=== PATIENT | female | born 1950 | race Caucasian/White ===

== ENCOUNTER → 2022-06-20 13:32 | Outpatient (CLI) | payer MEDICARE, SELFPAY ==
--- NOTE | ~2022-06-20 | MR_ITS ---
MRI of the left knee Clinical history: Pain Technique: Coronal proton density and proton density-weighted images, sagittal proton-density and T2 fat-sat images, and axial proton-density fat-saturated images were acquired. Findings: Anterior and posterior cruciate ligaments are intact. Medial collateral ligament and the la teral collateral ligament complex are intact. Popliteus tendon is intact. Horizontal tear of the posterior horn of the lateral meniscus is present, probably extending into the body segment. Horizontal tear of the posterior horn and body of medial meniscus is present. There is mild diffuse chondral thinning in the medial compartment. Articular cartilage in the lateral and patellofemoral compartments is well preserved. Bone marrow signals are unremarkable. Extensor mechanism intact. Small joint effusion is present, with small Urbina's cyst. Impression: Horizontal tear of the posterior horn of lateral meniscus, extending to the body segment. Horizontal tear of the posterior horn and body of medial meniscus. Mild diffuse chondral thinning of the medial compartment. Small joint effusion with small Urbina's cyst. Reviewed, dictated and finalized at location . [facility] [employer] Impression: Horizontal tear of the posterior horn of lateral meniscus, extending to the bod y segment. Horizontal tear of the posterior horn and body of medial meniscus. Mild diffuse chondral thinning of the medial compartment. Small joint effusion with small Urbina's cyst.
== END ==
PROVIDERS: PCP Nurse Practitioner; Visit Provider Nurse Practitioner
DX: S83.282A Other tear of lateral meniscus, current injury, left knee, initial encounter (principal); S83.242A Other tear of medial meniscus, current injury, left knee, initial encounter; X58.XXXA Exposure to other specified factors, initial encounter; M25.462 Effusion, left knee; M71.22 Synovial cyst of popliteal space [Baker], left knee
CPT/HCPCS: 73721

== ENCOUNTER 2022-07-03 09:06 | Outpatient (CLI) | payer MEDICARE, SELFPAY ==
[2022-07-03 11:25] LABS: Urine Cotinine NEGATIVE
== END 2022-07-03 09:07 | disposition home or self-care (01) ==
PROVIDERS: PCP Nurse Practitioner; Visit Provider Orthopaedic Surgery
DX: M17.12 Unilateral primary osteoarthritis, left knee (principal); Z01.818 Encounter for other preprocedural examination
CPT/HCPCS: 80307; 87081

== ENCOUNTER 2022-07-17 00:46 | Day surgery (SDC) | payer MEDICARE, SELFPAY ==
[2022-07-03 09:38] VITALS: BP 155/84; PULSE 70; RESP 16; TEMP 36.9; O2SAT 97; BMI 26.5
--- NOTE | 2022-07-03 09:53 | PC.NURSE ---
Report to the Outpatient Waiting Room, entrance under the green pavilion located off [facility], at time __8:30AM on date __07/17/22 . Planned Procedure Time: __10:30AM . Time changes happen often and if your time is changed the preop area will call you the afternoon before. - You and your visitor will be asked to self-screen and do not enter if you have any COVID symptoms. - Only one visitor is requested with a max of two and NO children visitors are allowed at this time. - The patient visitor may be requested to leave or wait in car when not with patient due to distancing restrictions. - A mask is optional within the hospital. Patients may have clear liquids (water, carbonated beverages, clear teas, apple juice) until 3 hours prior to surgery with a maximum of 20 ounces. - No food from midnight until time of surgery Take the following medications with a SIP of water the morning of surgery: __MECLIZINE NEEDED Medications to discontinue per physician ____NONE Date to take last dose Please no make-up, nail libyan, hairspray, perfume, deodorant, or body powder the day of surgery. No jewelry (including any body piercings) or valuables the day of surgery, leave them at home. Please take a shower or bath the night before, or the morning of, surgery with an antibacterial soap. Wear comfortable, loose fitting clothing. Children are encouraged to wear pajamas. - Jewelry must be removed prior to entering the operating room. Rings and piercings that are not removed may be cut off. - The hospital will not accept responsibility for valuables. - Please leave all valuables, including medications, at home the day of surgery. If you are going home after surgery, a licensed emt driver must drive you home. - NO public transportation without another adult if you receive anesthesia. - We recommend that an adult stay with you for 24 hours following discharge. - We also recommend that you do not drive, make important decision, drink alcoholic beverages, or take any drugs that were not prescribed by your health care provider for at least 24 hours after your discharge time. Follow any additional instructions given to you from your surgeon. If you or anyone in your household have experienced Covid symptoms in the past week, please notify your surgeon or the nurse liaison at the phone number below for possible testing. Telephone instructions given to PATIENT & HUSBAND___and asked if any additional questions and then verbalized understanding. Patient advised to call surgeon office or pre surgery nurse liaison [phone] if any additional questions.
[2022-07-17] VITALS (13 sets, daily range): BP systolic 127–150; BP diastolic 59–99; PULSE 67–89; RESP 14–20; TEMP 36.1–37.2; O2SAT 91–98; BMI 26.0
--- NOTE | ~2022-07-17 | XR_ITS ---
EXAMINATION: XR knee LT 2V DATE: 07/17/2022 10:01 INDICATION: Total left knee arthroplasty. Postop. TECHNIQUE: 2 views of left knee were obtained. COMPARISON: Left knee MRI 06/20/2022 FINDINGS: There is a total left knee arthroplasty with patellar resurfacing in near-anatomic alignmen t. No fracture. There is gas in the soft tissues, consistent with recent surgery. IMPRESSION: 1. Total left knee arthroplasty in near-anatomic alignment. Reviewed, dictated and finalized at location A. R PHOTOVOLTAIC DESIGNER
[2022-07-17 06:36] LABS: Glucose Point of Care 130 mg/dl (65-105)
[2022-07-17] MEDS: ACETAMINOPHEN 500 MG TABLET 1000 MG PO ×3 (06:39→21:52)
[2022-07-17] MEDS: TRANEXAMIC ACID 1,000MG/ISO100 1,000 MG/100 ML BAG 200 MG IVPB (07:03)
--- NOTE | 2022-07-17 07:12 | WPDANESEPPF ---
Anes - Initial Pre Proc Eval Procedure: Operation Date: 07/17/22 07:30 Proposed Procedures p Left Total Knee Arthroplasty - Torey Kendrick MD Date/Time: 07/17/22 07:12 Surgeon: Torey Kendrick MD Pre Op Diagnosis: oa left knee Patient Data Age: 71 Gender: F Height: 1.64 m Weight: 69.9 kg Last Vital Signs Temp 36.6 C 07/17/22 06:17 Pulse 73 07/17/22 06:17 Resp 16 07/17/22 06:17 BP 150/88 H 07/17/22 06:17 Pulse Ox 98 07/17/22 06:17 O2 Del Method Room Air 07/17/22 06:17 Allergies Allergy/AdvReac Type Severity Reaction Status Date / Time hydrocodone Allergy Severe NAUSEA AND Verified 07/17/22 06:07 VOMITING AND TROUBLE BREATHING codeine AdvReac Unknown HEADACHE Verified 07/17/22 06:07 Home Medications Medication Instructions Recorded Confirmed Type calcium carbonate 200 mg calcium 200 mg PO BID PRN Indigestion 04/06/22 07/17/22 History (500 mg) chewable tablet (Tums) ibuprofen 200 mg capsule 3 mg PO Q6H PRN Pain 04/06/22 07/17/22 History meclizine 25 mg tablet 25 mg PO BID PRN Vertigo 04/06/22 07/17/22 History metformin 1,000 mg tablet 1,000 mg PO BID 04/06/22 07/17/22 History acetaminophen 650 mg 1,300 mg PO Q12H PRN Pain 07/03/22 07/03/22 History tablet,extended release Laboratory Tests 07/17/22 06:34 POC Capillary Glucose 130 mg/dl H mg/dl (65-105) Patient hx anesthesia problems: none Family hx anesthesia problems: none Results Review: All pre-operative results and documents have been reviewed as part of the pre-operative evaluation. [facility] Past Medical History Medical History Arthritis Diabetes Surgical History Surgical History History of cholecystectomy History of knee surgery Total right knee per Dr. Kendrick in 2004 Family History Family History Mother Diabetes mellitus Colon cancer Grandparent Cerebrovascular accident Diabetes mellitus Social History Social History Smoking status: Never smoker Alcohol intake: current Substance use: never Living arrangements: with family Additional living arrangements comments: Spiritual care concerns: No Anes - Eval Final PreProcedure Day of Procedure 07/17/22 07:12 Patient weight: overweight Heart: regular rate and rhythm Lungs: clear to auscultation and normal air movement Airway: Mallampati scale class II Neurological: alert and oriented Last oral intake: >/= 8 hours ASA classification: III Emergent: no Anesthetic plan: proceed Anesthesia type and monitoring: general LMA Results Review: All pre-operative results and documents have been reviewed as part of the pre-operative evaluation. Informed Consent: The patient's anesthetic plan and its attendant risks and benefits were discussed with the patient/family/POA. Questions were solicited and answers provided to the satisfaction of the patient/family/POA.
--- NOTE | 2022-07-17 07:19 | WPDHPUPDATE1 ---
History and Physical Update Update Date/Time: 07/17/22 07:19 History and Physical has been reviewed, including an updated exam of the patient. There are NO changes in the patient's condition. Risks, benefits, and alternatives have been discussed and questions answered. Patient agrees to proceed with procedure.
[2022-07-17] MEDS: LACTATED RINGERS 1,000 ML 30 ML IV CONT ×2 (07:21→09:42)
--- NOTE | 2022-07-17 07:25 | WPDANESPNB ---
Anes - Peripheral Nerve Block Date/Time: 07/17/22 07:25 I have discussed with the patient/family/POA the placement of a peripheral nerve block for post-operative pain management, including associated risks, benefits, complications, and side effects. Alternative methods of post-operative analgesia were detailed. Questions were solicited and answers provided to the satisfaction of the patient/family/POA. Time-Out: A pre-procedural Time-Out was completed immediately before starting the procedure and confirmed: Patient Identification, Site, Procedure, Patient Position and the Availability of Requisite Equipment. Clinical Indications: Acute post-operative pain management requested by the operative surgeon. Nerve Block Insertion Note Anes-nerve block: adductor canal Patient position: supine Skin prep: chlorhexidine Needle: 22 gauge, stimulating, insulated echogenic needle. Needle length: 80 mm Technique: ultrasound Technique comment: in plane Injectate: bupivacaine 0.25% with epi 5 mcg/ml (30cc) Observations: tolerated well Complications: none Procedure start time:: 725 Procedure end time:: 730
[2022-07-17] MEDS: ceFAZolin 2 GM/D5W 50 ML 2 GM/50 ML BAG IVPB ×3 (07:33→21:52)
[2022-07-17] MEDS: GENTAMICIN BONE CEMENT REFOBACIN 1 EACH TOPICAL (08:41)
[2022-07-17] MEDS: fentaNYL CITRATE INJ (*CRX) 100 MCG/2 ML VIAL 25 MCG IV PUSH ×9 (09:47→11:00)
[2022-07-17 09:54] LABS: Glucose Point of Care 203 mg/dl (65-105)
--- NOTE | 2022-07-17 10:00 | SUR.PHASEI ---
1000- Notified Dr. Subramanian of patient's blood glucose being 203. Per Dr. Subramanian he is aware and no additional orders at this time.
--- NOTE | 2022-07-17 13:25 | PCPTNOTE ---
Attempted PT evaluation, pt refused stating she needed to eat and needed pain medication prior to therapy. RN aware.
--- NOTE | 2022-07-17 13:30 | W.PM.PROC2 ---
Procedure Note - Detailed Date of Procedure 07/17/22 Pre-op Diagnosis oa left knee Post-op Diagnosis Same Procedure Performed Left total knee replacement Surgeon Torey Kendrick MD Director Operations Brandy Pritchard Anesthesia General and Regional Description of Procedure The patient was identified and proper site identified. In the preop holding area the anesthesia team performed a left lower extremity sub sartorial block after which the patient was taken to the operating room and transferred to the OR table positioning supine taking care to pad the torso and extremities. After general anesthetic induction and intubation a nonsterile tourniquet was placed high on the left thigh. The left lower extremity was prepped and draped in the usual sterile fashion. The extremity was exsanguinated and with the knee flexed tourniquet was inflated to 100 mmHg remaining up for approximately 46 minutes. An anterior midline incision was made and a modified medial parapatellar approach was used. Infra and suprapatellar fat pads were excised. Patella was resected leaving 15 mm thickness and prepared for the size 31 round three peg component. Using the intramedullary guide the distal femur was cut in the proper orientation for the size 65 femoral component. Using the extramedullary guide the tibia was cut perpendicular to the long axis protecting collateral ligaments and popliteal structures. It was sized to a 67. Flexion and extension gaps were balanced. Trial reduction was undertaken and the weight-bearing line was noted to passed through the center of the joint. Proximal tibia was drilled and punched in the proper orientation for the real component. Trial components were removed. The bone surfaces were washed with pulsatile lavage and dried. The real components were cemented simultaneously. The knee was held in extension and the patella held clamped until the cement had cured. Excess cement was removed from the joint. After trialing it was determined that the 11 mm insert gave full range of motion from 0-120 degrees of flexion and the patella tracked in the femoral groove with no lift-off. After final lavage the joint the real size 11 insert was placed and secured with a locking bar. A Betadine and saline wash was placed into the wound and allowed to sit for approximately 3 minutes and then evacuated. Periarticular tissues were infiltrated with 60 cc of the arthroplasty solution. Surgicel powder was applied into the wound during the closure. The extensor mechanism was repaired with #2 Vicryl suture and 0 looped PDS suture. Subcu was reapproximated with 3-0 Monocryl and 2-0 Quill with tissue adhesive for the skin. A sterile dressing was applied. She tolerated the procedure well, was awakened and extubated, transferred to the bed and was taken to recovery area in stable condition. There were no known intraoperative complications. Perioperative antibiotics were administered. Estimated Blood Loss -100.0 Tourniquet Time 46 Drains No Packing No Pathology None sent Complications No immediate complications Condition Stable Disposition PACU [facility] Billing Surgery - Charge Forward: Surgery Billing ([id number])
[2022-07-17] MEDS: TAPENTADOL HCL (*CRX) 50 MG TABLET PO (13:50)
[2022-07-17] MEDS: traMADol HCL (*CRX) 50 MG TABLET PO (17:48)
--- NOTE | 2022-07-17 18:30 | WPDCN ---
Assessment and Plan Assessment and plan (1) Primary osteoarthritis of left knee: Code(s): M17.12 - Unilateral primary osteoarthritis, left knee Status: Acute Assessment and Plan: Postoperative day 0 status post left total knee replacement. Wound care, pain control, DVT prophylaxis deferred to Dr. Kendrick. (2) Postoperative nausea and vomiting: Code(s): R11.2 - Nausea with vomiting, unspecified; Z98.890 - Other specified postprocedural states Status: Acute Assessment and Plan: Patient attributes nausea/vomiting to pain medication. Antiemetics as needed. Continue IV fluids until tolerating diet. (3) Type 2 diabetes mellitus: Code(s): E11.9 - Type 2 diabetes mellitus without complications Status: Acute Assessment and Plan: Resume metformin on discharge. Initiate sliding scale insulin, Accu-Cheks, and hypoglycemic protocol. Check A1c. Plan Thank you for allowing us to participate in this patient's care. Please do not hesitate to contact us with any questions. HPI Data of Consult Date/Time: 07/17/22 18:30 Requesting Physician: Torey Kendrick MD Consult Narrative Reason for consult: Postoperative medical management. Narrative: This is a 71-year-old female with osteoarthritis, diabetes, and GERD whom the hospitalist service has been consulted for help managing her medical conditions postoperatively. Patient provides the following history. She has had pain in the left medial knee for quite some time which seems to be getting worse despite conservative outpatient treatment including injections, PT, etc.. She thus elected for replacement today (right knee was replaced 15 years ago with good result). Surgery was performed under general and regional anesthesia. No immediate complications were documented. Estimated blood loss was around 100 mL. Postoperatively she has had nausea and vomiting which she believes is mainly due to the pain medications as she has had issues with that in the past. She did not have a whole lot to eat this evening. At the time my evaluation she is concerned about the swelling in the left lower leg though it is noted that she has not had the cooling pack in place coming to the floor. She has no history of venous thromboembolism. She denies chest pain and shortness of breath. No paresthesias, skin color, or temperature changes distal to the surgical site. Review of Systems Review of Systems: Twelve systems were reviewed and are negative except for as per HPI. [facility] Past Medical History Medical History (Updated 07/17/22 @ 18:35 by Caty Dave PA-C) Arthritis Gastroesophageal reflux disease Type 2 diabetes mellitus Vertigo Surgical History Surgical History (Updated 07/17/22 @ 18:34 by Caty Dave PA-C) History of bilateral knee arthroplasty Total right knee per Dr. Kendrick in 2004. Total left knee per Dr. Kendrick 07/17/2022. History of cholecystectomy History of endoscopic retrograde cholangiopancreatography History of esophagogastroduodenoscopy Family History Family History Mother Diabetes mellitus Colon cancer Grandparent Cerebrovascular accident Diabetes mellitus Social History Social History (Updated 07/17/22 @ 18:35 by Caty Dave PA-C) Social History: Surrogate medical decision maker: Popeye Jackson, spouse. Code status: Full code. Smoking status: Never smoker Alcohol intake: current Substance use: never Lack of Transportation: No Lack of Food: Never True Current Housing: I Have Housing Concerned About Future Housing: No Difficulty Paying Gas/Electric Bills: No Difficulty Paying for Meds: No Currently Unemployed: No Education: Grade School Difficulty w/ Childcare or Family Care: No Living arrangements: with family Additional living arrangements comments: Lives in [place] with spouse. Spiritual care concerns: No
--- NOTE | 2022-07-17 18:50 | ADMGEN ---
This patient, Missy Boyer, was admitted to [facility] Surg Room 314-06 [id number]. Patient/family oriented to hospital policies and general routines including ID bracelet, bed and alarms, visiting hours, pain management, procedures, bathroom and other care routines, personal items, smoking policy, room service/diet, and visiting hours. Information on how to activate the Rapid Response Team has been discussed. Patient/Family are encouraged to report perceived risks to care and to ask questions if they do not understand what they are told or what they should do.
[2022-07-17 19:24] LABS: Anion Gap 11 mmol/L (8-16); Blood Urea Nitrogen 13 mg/dL (7-17); Carbon Dioxide 21 mmol/L (22-30); Chloride 102 mmol/L (98-107); Estimated CRCL calculation 63 ml/min; Estimated Glomerular Filt Rate > 60; Glucose 233 mg/dL (65-110); Magnesium 1.8 mg/dL (1.6-2.3); Potassium 4.1 mmol/L (3.4-5.0); Sodium 134 mmol/L (137-145)
[2022-07-17 20:17] LABS: Hemoglobin A1C 6.3 % (<5.7)
[2022-07-17 20:41] LABS: Glucose Point of Care 198 mg/dl (65-105)
[2022-07-17] MEDS: FAMOTIDINE 20 MG TABLET PO (21:52)
[2022-07-18 00:43] VITALS: BP 125/75; PULSE 73; RESP 16; TEMP 36.2; O2SAT 95
[2022-07-18] MEDS: traMADol HCL (*CRX) 50 MG TABLET PO (02:19)
[2022-07-18] MEDS: oxyCODONE HCL (*CRX) 2.5 MG TAB IR PO (03:42)
[2022-07-18 03:58] VITALS: BP 132/56; PULSE 67; RESP 16; TEMP 36.6; O2SAT 95
[2022-07-18] MEDS: ACETAMINOPHEN 500 MG TABLET 1000 MG PO (06:22)
[2022-07-18] MEDS: ceFAZolin 2 GM/D5W 50 ML 2 GM/50 ML BAG IVPB (06:23)
[2022-07-18 07:04] LABS: Hematocrit 42.3 % (37.0-47.0); Hemoglobin 13.8 g/dL (12.0-15.0); Mean Corpuscular HGB Conc 32.6 g/dl (32-36); Mean Corpuscular Hemoglobin 31.4 pg (26-34); Mean Corpuscular Volume 96.4 fl (80-100); Mean Platelet Volume 11.3 fl (7.4-10.4); Platelet Count Result 273 k/mm3 (150-375); Red Blood Count 4.39 M/mm3 (4.2-5.4); Red Cell Distribution Width 12.7 % (11.5-14.5)
[2022-07-18 07:18] LABS: Anion Gap 6 mmol/L (8-16); Blood Urea Nitrogen 10 mg/dL (7-17); Calcium 9.4 mg/dL (8.4-10.2); Carbon Dioxide 27 mmol/L (22-30); Chloride 102 mmol/L (98-107); Estimated CRCL calculation 63 ml/min; Estimated Glomerular Filt Rate > 60; Glucose 140 mg/dL (65-110); Potassium 3.7 mmol/L (3.4-5.0); Sodium 135 mmol/L (137-145)
--- NOTE | 2022-07-18 08:16 | PM.DS ---
DS: Admitting Diagnosis Discharge Date 07/18/2022 Admitting Diagnosis Left knee osteoarthritis DS: Discharge Diagnosis Discharge Diagnosis (1) Status post total left knee replacement: Code(s): Z96.652 - Presence of left artificial knee joint Status: Acute (2) Postoperative nausea and vomiting: Code(s): R11.2 - Nausea with vomiting, unspecified; Z98.890 - Other specified postprocedural states Status: Acute Plan 71-year-old female postop day 1 after left total knee replacement. She was up and working with therapy yesterday and plan to do so again today prior to discharge. She does have significant swelling to the left knee and left lower leg but I believe this will continue to go down with ice elevation and the prescribed Celebrex. She also had a bit of breakthrough pain last night. Plan to discharge her on Nucynta and I told her I would like her to take this on a regular basis for the 1st couple of days following surgery. This will also help to increase her mobilization of the knee with her home therapy exercises. She will take Xarelto 1 time daily for 2 weeks for DVT prophylaxis, she will start aspirin 325 mg daily after that has been completed. She was also feeling slightly nauseous yesterday so I also gave her Zofran to take as needed. Plan to follow-up in 2 weeks for wound check. DS: Summary Hospital Course Reason for hospitalization: Observation after outpatient procedure Hospital Course: 71-year-old female postop day 1 after left total knee replacement. She did have a bit of breakthrough pain last night and she was given tramadol and oxycodone. We will plan to discharge her on Nucynta but she will take it on a schedule for the 1st couple of days following discharge. She did work with therapy yesterday evening and will do so again this morning prior to discharge. She would like to get going as soon as possible but I encouraged her to get something to eat to make sure she can hold it down prior to discharge. She will also be given Zofran for nausea at time of discharge. Status at Discharge Functional status at discharge: uses cane/walker Overall status at discharge: patient is progressing back to baseline Time Spent with Patient Time attestation: Total time spent providing and/or coordinating discharge services: Time spent: Less than 30 minutes Exam Const: General: comfortable and no acute distress Eyes: General: appearance normal, both eyes and all related structures Resp: Effort & Inspection: normal respiratory effort GI: Inspection: non-distended Skin: General skin exam: ecchymosis (Left knee, left lower leg) and no erythema Neuro: Sensory Exam: normal sensation Extrem: Other: Exam of the left knee shows a clean and dry surgical dressing. There is moderate swelling to the left knee and left lower leg, consistent with surgical procedure. She is tender to touch around the knee and lower leg. Neurovascular status left lower extremity is intact. Psych: Mental Status: mental status grossly normal Radiology Reports: Comments: EXAMINATION: XR knee LT 2V DATE: 07/17/2022 10:01 INDICATION: Total left knee arthroplasty. Postop. TECHNIQUE: 2 views of left knee were obtained. COMPARISON: Left knee MRI 06/20/2022 FINDINGS: There is a total left knee arthroplasty with patellar resurfacing in near-anatomic alignment. No fracture. There is gas in the soft tissues, consistent with recent surgery. IMPRESSION: 1. Total left knee arthroplasty in near-anatomic alignment. Knee X-Ray 07/17/22 Knee MRI 06/20/22 Orthopedics Result Report 04/06/22 DS: Data Data Completed and Pending Labs on day of discharge: Labs from last 24 hours 07/18/22 07/18/22 07/17/22 06:39 06:39 20:30 WBC 14.0 H RBC 4.39 Hgb 13.8 Hct 42.3 MCV 96.4 MCH 31.4 MCHC 32.6 RDW 12.7 Plt Count 273 MPV 11.3 H Sodium 135 L Potassium 3.7 Chloride
[2022-07-18 08:17] LABS: Glucose Point of Care 137 mg/dl (65-105)
[2022-07-18] MEDS: CELECOXIB 100 MG CAPSULE PO (08:17)
[2022-07-18] MEDS: polyethylene glycoL 3350 17 GM POWD.PACK PO (08:17)
[2022-07-18] MEDS: SENNA/DOCUSATE SODIUM TABLET 2 TAB PO (08:17)
[2022-07-18] MEDS: RIVAROXABAN 10 MG TABLET PO (08:17)
[2022-07-18] MEDS: FAMOTIDINE 20 MG TABLET PO (08:17)
--- NOTE | 2022-07-18 09:29 | WPDANESPN ---
Anes - Prog Note Post-Op Date/Time: 07/18/22 09:29 Cardiovascular status: normal Respiratory status: normal Airway patency: baseline Mental status: baseline Post-Op hydration status: normal Vital Signs: Last Vital Signs Temp 36.6 C 07/18/22 03:58 Pulse 67 07/18/22 03:58 Resp 16 07/18/22 03:58 BP 132/56 L 07/18/22 03:58 Pulse Ox 95 07/18/22 03:58 O2 Del Method Room Air 07/17/22 20:00 O2 Flow Rate 2 07/17/22 16:00 Pain Score (VAS): 08/04 I/O: Intake & Output 07/17/22 07/18/22 07/18/22 23:59 07:59 15:59 Intake Total 340 Balance 340 Laboratory Tests 07/18/22 06:39 07/18/22 06:39 07/17/22 07/17/22 07/17/22 09:52 19:03 19:03 WBC RBC Hgb Hct MCV MCH MCHC RDW Plt Count MPV Sodium 134 L Potassium 4.1 Chloride 102 Carbon Dioxide 21 L Anion Gap 11 BUN 13 Creatinine 0.60 L Estim Creat Clear Calc 63 Estimated GFR > 60 Glucose 233 H POC Capillary Glucose 203 H Hemoglobin A1c 6.3 H Calcium 9.0 Magnesium 1.8 07/17/22 07/18/22 07/18/22 20:30 06:39 06:39 WBC 14.0 H RBC 4.39 Hgb 13.8 Hct 42.3 MCV 96.4 MCH 31.4 MCHC 32.6 RDW 12.7 Plt Count 273 MPV 11.3 H Sodium 135 L Potassium 3.7 Chloride 102 Carbon Dioxide 27 Anion Gap 6 L BUN 10 Creatinine 0.60 L Estim Creat Clear Calc 63 Estimated GFR > 60 Glucose 140 H POC Capillary Glucose 198 H Hemoglobin A1c Calcium 9.4 Magnesium 07/18/22 08:15 WBC RBC Hgb Hct MCV MCH MCHC RDW Plt Count MPV Sodium Potassium Chloride Carbon Dioxide Anion Gap BUN Creatinine Estim Creat Clear Calc Estimated GFR Glucose POC Capillary Glucose 137 H Hemoglobin A1c Calcium Magnesium Post-procedural complaints: none and nausea (improved this morning) Patient Feedback: Patient satisfied with anesthetic care.
--- NOTE | 2022-07-18 16:43 | PM.IMPN ---
Progress Note: A&P Assessment and Plan (1) Primary osteoarthritis of left knee: Code(s): M17.12 - Unilateral primary osteoarthritis, left knee Status: Resolved Assessment and Plan: Postoperative day 0 status post left total knee replacement. Wound care, pain control, DVT prophylaxis deferred to Dr. Kendrick. 07/18/2022 interval history: 71-year-old female status post left knee total arthroplasty POD#1, patient complains of pain in her left knee, patient seen by Orthopedic Service patient is doing better clinically and will be discharged today, patient denies complaint of chest pain shortness of breath or dizziness, patient blood pressure and blood sugar are. close to target (2) Postoperative nausea and vomiting: Code(s): R11.2 - Nausea with vomiting, unspecified; Z98.890 - Other specified postprocedural states Status: Acute Assessment and Plan: Patient attributes nausea/vomiting to pain medication. Antiemetics as needed. Continue IV fluids until tolerating diet. (3) Type 2 diabetes mellitus: Code(s): E11.9 - Type 2 diabetes mellitus without complications Status: Acute Assessment and Plan: Resume metformin on discharge. Initiate sliding scale insulin, Accu-Cheks, and hypoglycemic protocol. Check A1c. Plan Thank you for allowing us to participate in this patient's care. Please do not hesitate to contact us with any questions. Subjective Date/time seen: 07/18/22 16:43 07/18/2022 interval history: 71-year-old female status post left knee total arthroplasty POD#1, patient complains of pain in her left knee, patient seen by Orthopedic Service patient is doing better clinically and will be discharged today, patient denies complaint of chest pain shortness of breath or dizziness, patient blood pressure and blood sugar are. close to target Review of Systems Review of Systems: Twelve systems were reviewed and are negative except for as per HPI. Exam Narrative: Patient is comfortable, NAD HEENT: eyes are clear and none icteric LUNGS: normal respiratory effort ABD: not distended Lower extremities: no edema MS: left knee in immobilizer SKIN: nonjaundiced Neuro: grossly intact. Objective Data Vital Signs Vital Signs: Vital Signs - 24 hr 07/17/22 22:09 07/18/22 00:43 07/17/22 20:00 Temperature 97.3 F L 97.2 F L Pulse Rate 73 73 Respiratory Rate 16 16 Blood Pressure 144/76 H 125/75 Pulse Oximetry 97 95 95 Oxygen Delivery Room Air 07/18/22 03:58 07/18/22 08:15 Temperature 97.8 F Pulse Rate 67 Respiratory Rate 16 Blood Pressure 132/56 L Pulse Oximetry 95 Oxygen Delivery Room Air Intake/Output Intake/Output: Intake & Output 07/15/22 07/16/22 07/17/22 07/18/22 23:59 23:59 23:59 23:59 Intake Total 880 320 Balance 880 320 Meds/Results Radiology Results: ITS Impressions Knee X-Ray 07/17/22 10:05 IMPRESSION: 1. Total left knee arthroplasty in near-anatomic alignment. Labs Labs: Laboratory Results - last 24 hr 07/17/22 07/17/22 07/17/22 19:03 19:03 20:30 WBC RBC Hgb Hct MCV MCH MCHC RDW Plt Count MPV Sodium 134 L Potassium 4.1 Chloride 102 Carbon Dioxide 21 L Anion Gap 11 BUN 13 Creatinine 0.60 L Estim Creat Clear Calc 63 Estimated GFR > 60 Glucose 233 H POC Capillary Glucose 198 H Hemoglobin A1c 6.3 H Calcium 9.0 Magnesium 1.8 07/18/22 07/18/22 07/18/22 06:39 06:39 08:15 WBC 14.0 H RBC 4.39 Hgb 13.8 Hct 42.3 MCV 96.4 MCH 31.4 MCHC 32.6 RDW 12.7 Plt Count 273 MPV 11.3 H Sodium 135 L Potassium 3.7 Chloride 102 Carbon Dioxide 27 Anion Gap 6 L BUN 10 Creatinine 0.60 L Estim Creat Clear Calc 63 Estimated GFR > 60 Glucose 140 H POC Capillary Glucose 137 H Hemoglobin A1c Calcium 9.4 Magnesium Quality VTE Prophylax
== END 2022-07-18 11:15 | disposition home or self-care (01) ==
LOC: ANHSURGERY 09:36 → ANH3MEDSUR 11:10
PROVIDERS: Physician Assistant; PCP Nurse Practitioner; Visit Provider Orthopaedic Surgery
PROC: (CPT 27447; principal; 2022-07-17 07:30)
DX: M17.12 Unilateral primary osteoarthritis, left knee (principal); G89.18 Other acute postprocedural pain; R11.2 Nausea with vomiting, unspecified; E11.9 Type 2 diabetes mellitus without complications; Z79.84 Long term (current) use of oral hypoglycemic drugs
CPT/HCPCS: 27447; 64447; 36415; 73560; 80048; 80307; 82948; 83036; 83735; 85027; 86850; 86900; 86901; 87081; 97110; 97116; 97161; 97165; 97530; 97535; A9270; C1713; C1776; J0171; J0690; J1100; J1170; J2250; J2405; J2704; J2795; J3010; J7120

== ENCOUNTER → 2023-03-27 14:46 | Outpatient (CLI) | payer MEDICARE, SELFPAY ==
--- NOTE | ~2023-03-27 | MR_ITS ---
MRI of the right hip Clinical history: Pain Technique: Coronal T1-weighted, T2-weighted, and proton-density fat-sat images, and axial T1-weighted and proton-density fat-sat images were acquired through the pelvis. Coronal T2-weighted images and c oronal, axial, and sagittal proton-density fat-sat images were acquired through the right hip. Findings: There is no fracture, avascular necrosis, transient osteoporosis of either hip. Bone marrow signals the proximal femora and visual is pelvic bones are unremarkable. Bilateral hip joint spaces are preserved, with possible minimal chondromalacia. No joint effusion evident. There is a probable tear of the anterior acetabular labrum with associated paralabral cyst extending superiorly, measuring up to 2.2 cm in maximum diameter. Para-labral cyst is probably best visualized on series 7 images 16-18.. Visualized musculature about the pelvis and right hip is unremarkable. No muscle atrophy or edema columba ntified. Visualized tendons are intact. No evidence for bursitis. No soft tissue mass evident. IMPRESSION: Probable anterior right acetabular labral tear with associated para-labral cyst extending superiorly, measuring up to 2.2 cm in maximum diameter. Please see details above. Reviewed, dictated and finalized at location M. IMPRESSION: Probable anterior right acetabular labral tear with associated para-labral cyst extending superiorly, measuring up to 2.2 cm in maximum diameter. Please see d etails above.
--- NOTE | ~2023-03-27 | MR_ITS ---
MRI of the lumbar spine Clinical History: Radiculopathy Technique: Axial T2-weighted images, and sagittal T1-weighted, T2-weighted, and T2 fat-sat images wer e acquired. Findings: There is no fracture or subluxation of the lumbar spine. Vertebral bodies maintain alignmen t and alignment. No suspicious bone marrow signal abnormality seen. There is mild degenerative disc n arrowing throughout the lumbar spine. At L1-L2, there is minimal disc bulge and mild facet arthropathy. No central canal stenosis or defini te neural foraminal narrowing. At L2-L3, there is disc bulge and mild to moderate facet arthropathy. There may be minimal central ca nal stenosis and minimal bilateral neural foraminal narrowing. At L3-L4, there is disc bulge and severe facet arthropathy. There is moderate to severe is endometria l canal stenosis/thecal sac compression. There is moderate to advanced right neural foraminal narrowi ng, and moderate left neural foraminal narrowing. At L4-L5, there is diffuse disc bulge and severe facet arthropathy, with moderate to severe central c anal stenosis. There is severe bilateral neural foraminal narrowing. At L5-S1, there is disc bulge and severe facet arthropathy. No central canal stenosis. There is moder ate to advanced bilateral neural foraminal narrowing. Paravertebral soft tissues are unremarkable. Impression: Advanced degenerative spondylosis, with multilevel canal stenosis and neural foraminal narrowing, wor st at L3-L4 and L4-L5. Reviewed, dictated and finalized at [facility]. Impression: Advanced degenerative spondylosis, with multilevel canal stenosis and neural fo raminal narrowing, worst at L3-L4 and L4-L5.
== END ==
PROVIDERS: PCP Nurse Practitioner; Visit Provider Nurse Practitioner
DX: M47.26 Other spondylosis with radiculopathy, lumbar region (principal); G89.29 Other chronic pain
CPT/HCPCS: 72148; 73721

== ENCOUNTER 2024-03-27 08:34 | Outpatient (CLI) | payer MEDICARE, SELFPAY ==
--- NOTE | ~2024-03-27 | MR_ITS ---
MRI of the lumbar spine Clinical History: Spinal stenosis Technique: Axial T2-weighted images, and sagittal T1-weighted, T2-weighted, and and T2 fat-sat images were acquired. COMPARISON: 03/27/2023 Findings: There is no acute fracture or subluxation. Osseous alignment unchanged from prior exam. No suspicious bone marrow signal abnormality seen. At L1-L2, there is mild degenerative disc narrowing. There is minimal disc bulge and mild facet arthr opathy. No central canal stenosis or neural foraminal narrowing. At L2-L3, there is moderate degenerative disc narrowing. There is mild diffuse disc bulge and mild fa cet arthropathy. No central canal stenosis. Probable minimal bilateral neural foraminal narrowing. At L3-L4, there is diffuse disc bulge with severe facet arthropathy. There is moderate to advanced sp inal canal stenosis/thecal sac compression. There is moderate bilateral neural foraminal narrowing. At L4-L5, there is diffuse disc bulge and severe facet arthropathy, with focal severe spinal canal st enosis/thecal sac compression. There is moderate to advanced left neural foraminal narrowing, and sev ere right neural foraminal narrowing. At L5-S1, there is diffuse disc bulge with severe facet arthropathy. No central canal stenosis. There is moderate to severe bilateral neural foraminal narrowing, right worse than left. Paravertebral soft tissues are unremarkable. Impression: Moderate to severe degenerative spondylosis, as detailed above. Reviewed, dictated and finalized at [facility]. Impression: Moderate to severe degenerative spondylosis, as detailed above.
== END 2024-03-27 08:35 | disposition home or self-care (01) ==
PROVIDERS: PCP Neurological Surgery; Visit Provider Nurse Practitioner
DX: M48.061 Spinal stenosis, lumbar region without neurogenic claudication (principal); M47.896 Other spondylosis, lumbar region
CPT/HCPCS: 72148

== ENCOUNTER 2024-07-31 12:48 | Outpatient (CLI) | payer MEDICARE, SELFPAY ==
--- NOTE | ~2024-07-31 | MR_ITS ---
EXAMINATION: MR brain/brain stem wo/w con DATE: 07/31/2024 13:52 INDICATION: Aphasia. TECHNIQUE: Magnetic resonance imaging (MRI) of the brain and brainstem was performed without and with 13 mL MultiHance intravenous contrast. COMPARISON: None. FINDINGS: There are scattered areas of nonspecific increased T2-weighted signal intensity in the cere bral white matter, which is within normal limits for the patient's age. There is no intracranial hem orrhage, acute infarction, or abnormal intracranial mass lesion. The ventricles are normal in size. T here is mild mucosal thickening in right maxillary sinus. Right ocular globe is absent. The mastoid a ir cells are normal. IMPRESSION: 1. Normal aging brain. Reviewed, dictated and finalized at location A. SCREENER IMPRESSION: 1. Normal aging brain.
== END 2024-07-31 12:49 | disposition home or self-care (01) ==
LOC: MICIMG 12:51
PROVIDERS: PCP Nurse Practitioner; Visit Provider Neurological Surgery
DX: R47.01 Aphasia (principal)
CPT/HCPCS: 70553; A9577

== ENCOUNTER 2024-08-11 08:41 | Outpatient (CLI) | payer MEDICARE, SELFPAY ==
--- NOTE | ~2024-08-11 | XR_ITS ---
EXAMINATION: XR chest 2V DATE: 08/11/2024 10:30 INDICATION: Diabetes. Gastroesophageal reflux disease. Preop. Radiculopathy, lumbar region. TECHNIQUE: Frontal and lateral views of the chest were obtained. COMPARISON: Chest 2 views 02/23/2005 FINDINGS: There is no pneumonia, pleural effusion, or pneumothorax. There are prominent pericardial f at pads. The heart size is normal. There is a surgical clip in right abdomen. IMPRESSION: 1. No acute cardiopulmonary disease. Reviewed, dictated and finalized at location A. RE FITTER
--- NOTE | 2024-08-11 09:43 | ECG_ITS ---
Test Date: 2024-08-11 10:00:36 Measurements Intervals Britt Rate: 73 P: 57 HI: 188 QRS: -23 QRSD: 89 T: 49 QT: 373 QTc: 412 Interpretive Statements SINUS RHYTHM LOW QRS VOLTAGE IN PRECORDIAL LEADS EXTENSIVE ANTERIOR INFARCT, AGE INDETERMINATE BASELINE ARTIFACT- I, II, III, AVR, AVL, AVF, V1-V6 ABNORMAL ECG No previous ECG available for comparison Electronically Signed On 08-11-2024 10:06:49 WASTE MINIMIZATION TECHNICIAN by Terence Kumar D.O.
[2024-08-11 10:20] LABS: Basophils Absolute Auto 0.1 K/mm3 (0.0-0.1); Basophils Percent Auto 0.8 % (0.2-1.2); Eosinophils Absolute Auto 0.1 K/mm3 (0-0.3); Eosinophils Percent Auto 1.2 % (0-4.4); Hematocrit 43.2 % (37.0-47.0); Hemoglobin 14.3 g/dL (12.0-15.0); Immature Granulocyte Absolute 0.02 K/mm3 (0.00-0.031); Immature Granulocyte Percent A 0.3 % (0-0.5); Lymphocytes Percent Auto 16.7 % (18.3-44.2); Mean Corpuscular HGB Conc 33.1 g/dl (32-36); Mean Corpuscular Hemoglobin 31.6 pg (26-34); Mean Corpuscular Volume 95.6 fl (80-100); Mean Platelet Volume 11.1 fl (7.4-10.4); Monocytes Absolute Auto 0.5 K/mm3 (0.1-0.6); Monocytes Percent Auto 5.8 % (2.6-8.5); Neutrophils Absolute Auto 5.9 K/mm3 (1.3-6.7); Neutrophils Percent Auto 75.2 % (45.5-73.1); Platelet Count Result 262 k/mm3 (150-375); Red Blood Count 4.52 M/mm3 (4.2-5.4); Red Cell Distribution Width 12.5 % (11.5-14.5); White Blood Count 7.8 K/mm3 (4.5-10.0)
[2024-08-11 10:21] LABS: Add Urine Microscopic? NO; Appearance Urine Clear (Clear); Bilirubin Urine Negative (Negative); Blood Urine Negative (Negative); Color Urine Yellow (Yellow); Glucose Urine UA Negative (Negative); Ketones Urine Negative (Negative); Leukocyte Esterase Ur Negative LEU/UL (Negative); Nitrate Urine Negative (Negative); Protein Urine Negative (Negative); Specific Grav Ur 1.012 (1.001-1.035)
[2024-08-11 10:30] LABS: Partial Thromboplastin Time 29.3 Seconds (22.3-36.8); Prothrombin Time 13.3 Seconds (11.1-14.7)
[2024-08-11 10:32] LABS: Anion Gap 12 mmol/L (4-12); Blood Urea Nitrogen 14 mg/dL (7-17); Calcium 10.2 mg/dL (8.4-10.2); Carbon Dioxide 25 mmol/L (22-30); Chloride 104 mmol/L (98-107); Estimated Glomerular Filt Rate > 60; Glucose 111 mg/dL (65-110); Potassium 3.9 mmol/L (3.4-5.0); Sodium 141 mmol/L (137-145)
[2024-08-11 10:46] LABS: Hemoglobin A1C 6.7 % (<5.7)
--- OUTSIDE RECORDS SUMMARY | 2024-08-11 11:32 | XMS_ITS | Patient Health Record ---
Author Organization [facility] Address [address] [place] [address] Care Team Providers Care Assisted Living Coordinator Name Role Phone Lyle MAS, Mihaela Primary Care Provider Helga Mary PA-C, DARRELL Unavailable [phone] ALLERGIES Allergen (clinical drug ingredient) Drug/Non Drug Allergy documented on EMR Reaction Allergy Type Onset Date Status codeine Codeine Sulfate headache Drug Allergy A ctive acetaminophen / hydrocodone Hydrocodone-Acetamin ophen n/v, dizzy Drug Allergy Active REASON FOR REFERRAL No Information MEDICATIONS Medication SIG (Take, Route, Frequency, Duration) Notes Start Date End Date Status Omeprazole 20 MG 1 capsule 30 minutes before morning meal Orally Once a day Active Aspirin 81 MG 1 tablet Orally Once a day Not-Taking Calcium Active Dicyclomine HCl 10 MG 1 tablet Orally QID Active Meclizine HCl 25 MG 1 tablet as needed Orally Once a day Active metFORMIN HCl ER (MOD) 1000 MG 1 tablet with evening meal Orally Once a day Active SOCIAL HISTORY Tobacco Use: Social History Observation Description Date Details (start date - stop date) Never Smoker NA - NA Sex Assigned At : Social History Observation Description Sex Assigned At Unknown Tobacco Use/Smoking Question Answer Notes Are you a nonsmoker PLAN OF TREATMENT Pending Test Test Name Order Date Endoscopic Retrograde Cholangiopancreato graphy (ERCP) 11/24/2019 Insurance Providers Payer Name Payer Address Payer Phone Subscriber Number Group Number Insured Name Patient Relationship to Insured Coverage Start Date Coverage End Date [facility] [address] [place], [place] [id number] Missy Boyer Self - patient is the insured MEDICAL (GENERAL) HISTORY Medical History History ICD Code Vertigo Anxiety/depression Gallbladder disease Vertgio Type 2 diabetes Surgical History Surgery Date(Month/Year) Cholecystectomy Eye surgery EGD with Dr. Fernandes 2019 with normal findings other than 2 cm hiatal hernia. Esophageal dilatation performed. No esophagitis. Path was negative. Gastric bx neg. Duodenum appeared normal. Right knee replacement
== END 2024-08-11 08:42 | disposition home or self-care (01) ==
LOC: ANHSURGERY 08:46
PROVIDERS: PCP Nurse Practitioner; Visit Provider Neurological Surgery
DX: Z01.818 Encounter for other preprocedural examination (principal); M54.16 Radiculopathy, lumbar region; R94.31 Abnormal electrocardiogram [ECG] [EKG]
CPT/HCPCS: 36415; 71046; 80048; 81003; 83036; 85025; 85610; 85730; 93005

== ENCOUNTER 2024-10-21 09:01 | Outpatient (CLI) | payer MEDICARE, SELFPAY ==
--- NOTE | ~2024-10-21 | NM_ITS ---
EXAMINATION: NM lupe stress w perfusion DATE: 10/21/2024 11:52 INDICATION: Encounter for preprocedural cardiac examination TECHNIQUE: Rest images were obtained following intravenous administration of 9.8 mCi Tc99m tetrofosmi n (Myoview). The patient was infused intravenously with Lexiscan (Regadenoson). Then, 31.0 mCi Tc99m tetrofosmin (Myoview) was administered intravenously, and stress images were obtained. Data was recon structed into short axis and horizontal and vertical long axis SPECT images. Gated SPECT images were also obtained. COMPARISON: None. FINDINGS: There is no definite reversible or fixed perfusion abnormality to suggest ischemia or infar ction. There is normal left ventricular chamber size, wall motion and ejection fraction. Left ventr icular ejection fraction measures >70%. IMPRESSION: 1. Normal myocardial perfusion at rest and during stress. 2. Left ventricular ejection fraction measuring >70%. Reviewed, dictated and finalized at location B.
--- OUTSIDE RECORDS SUMMARY | 2024-10-21 09:39 | XMS_ITS | Patient Health Record ---
Author Organization [facility] Address [address] [place] [address] Care Team Providers Care Shale Planer Operator Helper Name Role Phone Lyle MAS, Mihaela Primary Care Provider Helga Mary PA-C, DARRELL Unavailable ALLERGIES Allergen (clinical drug ingredient) Drug/Non Drug [...] Insured Coverage Start Date Coverage End Date [facility] [address] [place], [place] [id number] Missy Boyer Self - patient is the [...]
--- OUTSIDE RECORDS SUMMARY | 2024-10-21 09:39 | XMS_ITS | Encounter Summary ---
Author Organization [facility] Address [address] [place] [address] Care Team Providers Care Powder Guard Name Role Phone Mihaela Alvarenga TREE TRIMMER HELPER Primary Care Provider [phone] Jamee Ma DO Unavailable Encounter Details Date Type Department Care Team (Late st Contact Info) Description 10/31/2019 Prep for Procedure [facility] [address] [place] [address] Garcia Fernandes MD [address] [facility] [address] [place] [address] Social History Tobacco Use Types Packs/Day Years Used Date Smoking Tobacco: Never Smokeless Tobacco: Never Alcohol Use Standard Drinks/Week Comments No 0 (1 standard drink = 0.6 oz pur e alcohol) AUDIT-C Answer Date Recorded Frequency of Alcohol Consumption Never 08/09/2018 Average Number of Drinks Not on file 019 Frequency of Binge Drinking Not on file 07/26 Comments No Sex and Gender Information Value Date Recorded Sex Assigned at Not on file Legal Sex Female 7:58 AM CDT Gender Identity Not on file Sexual Orientation Not on file COVID-19 Exposure Response Date Recorded In the last month, have you been in contact with someone who was confirmed or suspected to have Coronavirus / COVID-19? No / Unsure 11/03/2019 10:10 AM CDT documented as of this encounter Plan of Treatment Not on file documented as of this encounter Results * PRE-SURGICAL/PRE-PROCEDURE CORONAVIRUS (COVID 19) (11/03/2019 10:11 AM CDT) CORONAVIRUS SARS COV 2 PCR (RESP) NOT DETECTED NOT DETECTED 11/05/2019 6:43 AM CDT [facility] Comment:[facility] NASOPHARYNGEAL SWAB / Unknown 11/03/2019 10:11 AM CDT us Garcia Fernandes MD MICROBIOLOGY - GENERAL ASUNCION KHAN Final Result [facility] [address] [place] [address], documented in this encounter Visit Diagnoses Diagnosis Pre-op testing- Primary Preoperative examination, unspecified documented in this encounter Additional Health Concerns Infection Onset Date Last Indicated Resolved Time COVID-19 Rule Out 11/03/2019 11/03/2019 11/05/2019 6:43 AM CDT documented as of this encounter Care Teams Powder Guard Relationship Specialty Start Date End Date Mihaela Alvarenga FNP [address] [place], [place] [id number] PCP - General NURSE PRACTITIONER 04/30/18 Jamee Ma DO [address] [place] [id number] PCP - Med Group - [facility] Attributed Provider 04/29/19 06/24/21 documented as of this encounter
--- OUTSIDE RECORDS SUMMARY | 2024-10-21 09:39 | XMS_ITS | Clinical Summary ---
Author Organization [facility] Address [facility] [place] [address] Care Team Providers Care Theatre Arts Professor Name Role Phone Mihaela Alvarenga TEST BORER Primary Care Provider [phone] Allergies Active Allergy Reactions Criticality Noted Date Comments Codeine Headache 11/24/2019 Hydrocodone-Acetaminophen Nausea and Vomiting,Dizziness High 04/10/2017 Medications calcium carbonate (TUMS) 500 MG chewable tablet Chew 2 tablets (1,000 mg total) by mouth as needed for Heartburn. Active meclizine (ANTIVERT) 25 MG tabletIndications: Chronic vertigo TAKE 1 TABLET BY MOUTH THREE TIMES A DAY NEEDED 90 tablet 07/06/19 23 Active Lancets (ONETOUCH DELICA PLUS [id number]) MiscIndications:Ty pe 2 diabetes mellitus without complication, without long-term current use of insulin ([facility]) 1 strip by Other route daily. DX; E11.9 100 each 09/11/19 24 Active Glucose Blood (ONETOUCH ULTRA TEST) test stripIndications:M ixed hyperlipidemia Pt. To test blood sugar Daily. DX: E11.9 100 strip 3 07/29/19 25 Active metFORMIN (GLUCOPHAGE) 1000 MG tabletIndications: Type 2 diabetes mellitus without complication, without long-term current use of insulin ([facility]) TAKE 1 TABLET (1000 MG TOTAL) BY MOUTH 2 (TWO) TIMES DAILY. OFFICE VISIT DUE FOR FURTHER REFILLS. 60 tablet 10/08/19 25 Active metFORMIN (GLUCOPHAGE) 1000 MG tabletIndications: Type 2 diabetes mellitus without complication, without long-term current use of insulin ([facility]) TAKE 1 TABLET (1000 MG TOTAL) BY MOUTH 2 (TWO) TIMES DAILY. 60 tablet 07/28/19 25 025 Discontinued Active Problems Problem Noted Date Diagnosed Date Foraminal stenosis of lumbar region 05/21/2023 Radiculopathy, lumbar region 05/21/2023 Other intervertebral disc degeneration, lumbar r egion 05/21/2023 Spinal stenosis of lumbar re gion without neurogenic claudication 05/21/2023 Chronic vertigo 10/01/2018 Osteoarthritis 10/01/2018 Glass eye 05/03/2017 Overview (10/01/2018): Date Onset: 05/03/2017 Depression 05/11/2014 Overview (10/01/2018): Date Onset: 05/11/2014 Hyperlipidemia 05/11/2014 Overview (10/01/2018): Date Onset: 05/11/2014 Diabetes mellitus, type II ([facility]) Overview (10/01/2018): Date Onset: 09/16/2013 Encounters Date Type Department Care Team Description 10/16/[address] [place] [address] Mihaela Alvarenga FNP Lab Results 10/09/2024 6:56 AM CDT - 10/09/2024 11:59 PM CDT Hospital Encounter [facility] [address] [place] [address] Terence Kumar DO Discharge Disposition: Home or Self Care (Routine Discharge) 10/09/2024 Orders Only [facility] [address] [place] [address] Terence Kumar DO 10/09/2024 Travel 10/06/2024 Telephone Critical access hospital [address] [facility] [place] [address] Mihaela Alvarenga FNP Error 09/16/[address] [place] [address] Mihaela Alvarenga, EMILY Information 09/01/[address] [place] [address] Mihaela Alvarenga, EMILY Information 08/29/[address] [place] [address] Mihaela Alvarenga, TEST BORER Concerns 08/25/[address] [place] [address] Mihaela Alvarenga, TEST BORER Referral 08/13/[address] [place] [address] Mihaela Alvarenga FNP Results 08/11/2024 Scan HEALTH INFO SRVCS Scanned, [facility] ECG (SCAN); Image (SCAN) 07/31/2024 Scan MG HEALTH INFO [facility] Scanned, [facility] MRI (SCAN) 07/29/[address] [place] [address] Mihaela Alvarenga, TEST BORER Medication Request from Last 3 Months Immunizations Immunization Administration Dates Next Due Fluzone High Dose (IIV, triv alent, 0.5mL) 05/16/2019,04/25/2018,04/20/2017,2015 Fluzone High Dose - >Age 65 (Prefilled Syringe) 05/12/2021,05/06/2020,05/16/2019,2017,04/20/2017,04/14/2016 Influenza Adult (Generic) 05/16/2019,06/2017,04/20/2017,2015 Pneumococcal (Pneumovax 23) 04/21/2014 Family History Medical History Relation Comments Colon Cancer Mother Relation Status Comments Mother Social History Tobacco Use Types Packs/Day Years Used Date Smoking Tobacco: Never Smokeless Tobacco: Never Tobacco Cessation:Counseling Given: Not Answered Comments:provider to assessment counselor Alcohol Use Standard Drinks/Week Comments No 0 (1 standard drink = 0.6 oz pur e alcohol) AUDIT-C Answer Date Recorded Frequency of Alcohol Consumption Never 08/09/2018 Average Number of Drinks Not on file 019 Frequency of Binge Drinking Not on file 07/26 PHQ-2 Answer Date Recorded Patient Health Questionnaire-2 Score 0 06/30/2022 Comments No Sex and Gender Information Value Date Recorded Sex Assigned at Not on file Legal Sex Female 7:58 AM CDT Gender Identity Not on file Sexual Orientation Not on file Last Filed Vital Signs Vital Sign Reading Time Taken Comments Blood Pressure 130/70 02/21/2024 8:49 AM CDT Pulse 74 02/21/2024 8:49 AM CDT Temperature 35.6 C (96 F) 02/21/2024 8:49 AM CDT Respiratory Rate 18 02/21/2024 8:49 AM CDT Oxygen Saturation 98% 02/21/2024 8:49 AM CDT Inhaled Oxygen Concentration - - Weight 66.7 kg (147 lb) 02/21/2024 8:49 AM CDT Height 160 cm (5' 3 ) 02/21/2024 8:49 AM CDT Body Mass Index 26.04 02/21/2024 8:49 AM CDT Plan of Treatment Health Maintenance Due Date Last Done Comments Kidney Health Evaluation 1950 DTaP, Tdap and Td Vaccines (1 - Tdap) 11/22/1967 COVID-19 Vaccine (1 - season) 2024 PHQ-2 (Physician [place]) 06/25/2024 Hemoglobin A1C 08/22/2024 02/22/2024, 02/23, 06/30/2022, Additional history exists Annual Medicare Wellness Visit 02/20/2025 Postponed from 2013 (Patient Refused) Dexa Scan (General) 02/20/2025 Postpone d from 2013 (Patient Refused) RSV Immunization or 60+ Years (1 - 1-dose 75+ series) 02/20/2025 Postponed from 11/22/2023 (Going to Outside Clinic) Zoster Vaccines (1 of 2) 02/20/2025 Pos tponed from 1998 (Going to Outside Clinic) Colorectal Cancer Screening Colonoscopy (10 Years) 02/23/2025 Postponed from 1950 (Patient Refused) Diabetes: Retinopathy Eye Exam 07/04/2025 07/04/2023 Lipid Panel 10/09/2025 10/09/2024, 08/, 03/07/2023, Additional history exists Pneumococcal Vaccine: 50+ Years (2 of 2 - PCV) 01/23/2027 04/21/2014 Postponed from 04/21/2015 (Patient Refused) Hepatitis C 06/30/2052 Postponed from 1966 (Patient Refused) Meningococcal B Vaccine Aged Out No l onger eligible based on patient's age to complete this topic Meningococcal Vaccine Aged Out No martha shanelle eligible based on patient's age to complete this topic RSV Immunizations Under 20 Months Aged Out No longer eligible based on patient's age to complete this topic Medical Devices Implanted Type Area Grocery Clerk Checking Device Identifier Shelf Expiration Date Model / Serial / Lot Knee Components Knee Components Right: Knee Procedures Procedure Name Priority Date/Time Associated Diagnosis Comments LIPID PANEL Routine 10/09/2024 7:05 AM CDT Abnormal electrocardiogram ECG GENERIC (SCAN ORDER) 08/11/2024 IMAGE GENERIC 08/11/2024 MRI GENERIC 07/31/2024 HEMOGLOBIN, GLYCOSYLATED Routine 02/22/2024 8:35 AM CDT Type 2 diabetes mellitus without complication, without long-term current use of insulin DIABETIC RETINOPATHY EXAM (NEGATIVE)(SCAN ORDER) Routine 07/04/2023 from Last 3 Months or Most Recently Relevant to Health Maintenance Results * (ABNORMAL) LIPID PANEL (10/09/2024 7:05 AM CDT) CHOLESTEROL 242(H) <200 MG/DL 10/09/2024 11:13 AM CDT [facility] TRIGLYCERIDES 117 <150 MG/DL 10/09/2024 11:13 AM CDT [facility] HDL 53 >40.0 MG/DL 10/09/2024 11:13 AM CDT [facility] LDL (CALCULATED) 166(H) <100 MG/DL 10/09/2024 11:13 AM CDT [facility] NON HDL CHOLESTEROL 189(H) <130 MG/DL 10/09/2024 11:13 AM CDT [facility] CHOL/HDL RATIO 4.6(H) 0.0 - 4.5 10/09/2024 11:13 AM CDT [facility] VLDL CALCULATION 23 5 - 55 MG/DL 10/09/2024 11:13 AM CDT [facility] LIPID INTERPRETATION 10/09/2024 11:13 AM CDT [facility] Comment: NIH CONCENSUS REPORT RECOMMENDATIONS: ADULT CHILD LOW RISK: CHOLESTEROL <200 <170 TRIGLYCERIDE <150 --- HDL >=60 --- LDL <100 <110 BORDERLINE: CHOLESTEROL 200-239 170-199 TRIGLYCERIDE 150-199 --- HDL 40-59 --- LDL 100-159 110-129 HIGH RISK: CHOLESTEROL >=240 >=200 TRIGLYCERIDE >=200 --- HDL <40 --- LDL >=160 >=130 10/09/2024 7:05 AM CDT Terence Kmuar DO LABORATORY Final Result [facility] [address] [place] [address], [place] [phone] * ECG GENERIC (SCAN ORDER) (08/11/2024) 08/11/2024 [facility] Scanned SCANNING Final Resu lt * IMAGE GENERIC (08/11/2024) Anatomical Region Laterality Modality Other 08/11/2024 [facility] Scanned SCANNING Final Resu lt * MRI GENERIC (07/31/2024) Anatomical Region Laterality Modality Other 07/31/2024 us [facility] Scanned SCANNING Final Resu lt * (ABNORMAL) HEMOGLOBIN, GLYCOSYLATED (02/22/2024 8:35 AM CDT) HGB A1C 6.4(H) <5.7 % 02/22/2024 4:19 PM CDT [facility] Comment: ADA GUIDELINES 2010 5.7 TO 6.4% INCREASED RISK OF DIABETES > OR = 6.5% CONSISTENT WITH DIABETES ESTIMATED AVG GLUCOSE 137 mg/dL 02/22/2024 4:19 PM CDT [facility] 02/22/2024 8:35 AM CDT Mihaela DIAZ LABORATORY Final Result [facility] [address] [place] [address], * DIABETIC RETINOPATHY EXAM (NEGATIVE) (07/04/2023) [facility] Scanned SCANNING Final Resu lt [facility] from Last 3 Months or Most Recently Relevant to Health Maintenance Insurance [employer] Care Teams Theatre Arts Professor Relationship Specialty Start Date End Date Mihaela Alvarenga FNP [address] [place] [address] [place] [address] PCP - General NURSE PRACTITIONER 04/30/18
--- NOTE | 2024-10-21 10:18 | EST_ITS ---
Patient Info Name: Missy Boyer Age: 73 years : 1950 Gender: Female Ht: 64 in Wt: 150 lbs BSA: 1.77 m2 HR: 70 bpm BP: 143 / 69 mmHg Exam Date: 10/21/2024 11:04 AM Exam Location: Echo Lab Patient Status: Outpatient Admit Date: 10/21/2024 Staff Ordering Physician: Terence Kumar DO Attending Provider: Terence Kumar DO Exercise Technologist: Ana Madrigal RDCS Exercise Physician: Terence Kumar DO Exam Type: CA stress lupe w NM Study Info A regadenoson stress test was performed. Summary 1. 1. Negative lexiscan stress test for ischemic ST changes by ECG criteria. 2. 2. Baseline hypertension. 3. 3. Nuclear scan to follow and will be reported separately. Please correlate with it. 4. 4. Patient informed of the above results. Protocol: Lexiscan Stress ECG Details Stage: REST Duration (min): 1 min : 37 sec HR (bpm): 71 SBP (mmHg): 143 DBP (mmHg): 69 Stage: REST Duration (min): 4 min : 3 sec HR (bpm): 62 SBP (mmHg): 143 DBP (mmHg): 69 Stage: STAGE 1 Duration (min): 0 min : 59 sec HR (bpm): 82 SBP (mmHg): 149 DBP (mmHg): 73 Stage: RECOVERY Duration (min): 1 min : 0 sec HR (bpm): 87 SBP (mmHg): 149 DBP (mmHg): 73 Stage: RECOVERY Duration (min): 2 min : 0 sec HR (bpm): 92 SBP (mmHg): 101 DBP (mmHg): 75 Stage: RECOVERY Duration (min): 3 min : 0 sec HR (bpm): 89 SBP (mmHg): 101 DBP (mmHg): 75 Stage: RECOVERY Duration (min): 3 min : 33 sec HR (bpm): 84 SBP (mmHg): 101 DBP (mmHg): 75 Rest HR: 62 bpm Peak HR: 98 bpm Rest Sys BP: 143 mmHg Peak Sys BP: 149 mmHg Max Pred HR: 145 bpm % Max Pred HR: 68 % Target HR: 123 bpm Max RPP: 14,602 bpm*mmHg Termination Reason: Completed protocol Cardiac Symptoms: Nausea Total Time: 1 min : 0 sec Rest Dutta BP: 69 mmHg Peak Dutta BP: 73 mmHg Total Dose: 0.4 mg Resting ECG Sinus rhythm, low voltage in diffuse leads. Stress ECG No ST changes. Arrhythmias None. Report Signatures
--- NOTE | 2024-10-21 11:54 | ECHO_ITS ---
Patient Info Name: Missy Boyer Age: 73 years : 1950 Gender: Female Ht: 64 in Wt: 150 lbs BSA: 1.77 m2 HR: 72 bpm BP: 179 / 84 mmHg Heart Rhythm: Sinus Rhythm Technical Quality: Good Exam Date: 10/21/2024 11:58 AM Exam Location: Echo Lab Patient Status: Outpatient Admit Date: 10/21/2024 Staff Ordering Physician: Terence Kumar DO Ceiling Installer: Ana Madrigal RDCS Attending Provider: Terence Kumar DO Referring Physician: José ORTIZ; Exam Type: CA echo doppler color flow Study Info Indications R06.09 - Other forms of dyspnea Complete two-dimensional, color flow and Doppler transthoracic echocardiogram is performed. Summary 1. Complete two-dimensional, color flow and Doppler transthoracic echocardiogram is performed. 2. Left ventricular chamber dimension is normal. 3. Left ventricular systolic function is hyperdynamic, estimated at >70%. 4. There is mild concentric increased left ventricular wall thickness. 5. The left ventricular diastolic function is grade I diastolic dysfunction. 6. E/e' 9 is minimally elevated. 7. The mitral valve has mildly calcified annulus. 8. There is trace tricuspid valve regurgitation. 9. No pulmonary hypertension, estimated pulmonary arterial systolic pressure is 23 mmHg. 10. Small atheroma in anterior aortic root. Left Ventricle E/e' 9 is minimally elevated. Left ventricular chamber dimension is normal. Left ventricular systolic function is hyperdynamic, estimated at >70%. There is mild concentric increased left ventricular wall thickness. The left ventricular diastolic function is grade I diastolic dysfunction. Right Ventricle Right ventricular chamber dimension is normal. Right ventricular systolic function is normal. Left Atria Left atrial chamber dimension is normal. Right Atria Right atrial chamber dimension is normal. Aortic Valve The aortic valve is trileaflet. There is no aortic valve stenosis. There is no aortic valve regurgitation. Pulmonic Valve There is no pulmonic regurgitation. Mitral Valve The mitral valve has mildly calcified annulus. There is no mitral valve stenosis. There is no mitral valve regurgitation. Tricuspid Valve There is trace tricuspid valve regurgitation. No pulmonary hypertension, estimated pulmonary arterial systolic pressure is 23 mmHg. Pericardium/Pleural There is no pericardial effusion. Inferior Vena Cava Normal inferior vena cava with >50% collapse upon inspiration consistent with normal right atrial pressure, 5 mmHg. Aorta Small atheroma in anterior aortic root. The aortic root size at the sinus of Valsalva is normal. Left Ventricular Outflow Tract Name Value Normal LVOT 2D LVOT Diameter 2.0 cm LVOT Doppler LVOT Peak Gradient 4 mmHg LVOT Mean Gradient 2 mmHg LVOT VTI 20 cm LVOT VTI/AV VTI Ratio 0.7 LVOT Stroke Volume 61 ml LVOT CO 3.7 l/min LVOT CI 2.1 l/min/m2 Pulmonic Valve Name Value Normal RVOT Doppler RVOT Peak Gradient 2 mmHg PV Doppler PV Peak Gradient 3 mmHg Mitral Valve Name Value Normal MV Doppler MV Decel [place] 388 cm/s2 MV PHT 53 ms MV Area (PHT) 4.2 cm2 4.0-5.0 MV Diastolic Function MV E Peak Velocity 71 cm/s MV A Peak Velocity 71 cm/s MV E/A 1.0 MV Decel Time 182 ms MV Annular TDI MV E/e' (Septal) 10.1 <=8.0 MV E/e' (Lateral) 8.3 <=8.0 MV E/e' (Average) 9.2 Tricuspid Valve Name Value Normal TV Regurgitation Doppler TR Peak Velocity 215 cm/s TR Peak Gradient 17 mmHg Estimated PAP/RSVP RA Pressure 5 mmHg <=5 PA Systolic Pressure 23 mmHg <36 RV Systolic Pressure 23 mmHg <36 Aorta Name Value Normal Ascending Aorta Ao Root Diameter (MM) 3.0 cm Ao Root Diam Index (MM) 1.7 cm/m2 Aortic Valve Name Value Normal AV Doppler AV Peak Velocity 118 cm/s AV Peak Gradient 6 mmHg AV Mean Gradient 3 mmHg AV VTI 26 cm AV Area (Cont Eq VTI) 2.3 cm2 >=3.0 AV Area (Cont Eq Jesus) 2.5 cm2 AV Regurgitation 2D LVOT Area 3.1 cm2 Ventricles Name Value Normal LV Dimensions 2D/MM IVS Diastolic Thickness (2D) 0.8 cm 0.6-1.0 LVID Diastole (2D) 4.8 cm 3.8-5.2 LVIW Diastolic Thickness (2D) 0.8 cm 0.6-0.9 LVID Systole (2D) 2.6 cm 2.2-3.5 LVOT Diameter 2.0 cm LV Mass (2D Cubed) 135.53 g 67.00-162.00 LV Mass Index (2D Cubed) 77 g/m2 43-95 Relative Wall Thickness (2D) 0.35 LV Fractional Shortening/Ejection Fraction 2D/MM LV Fractional Shortening (2D) 45 % 27-45 LV EF (2D Teicholz) 76 % 54-74 LV Diastolic Volume (4C MOD) 39 ml LV EF (4C MOD) 74 % LV Diastolic Volume (2C MOD) 42 ml LV EF (2C MOD) 70 % LV Diastolic Volume (BP MOD) 42 ml 46-106 LV Diastolic Volume Index (BP MOD) 24 ml/m2 29-61 LV Systolic Volume (BP MOD) 11 ml 14-42 LV Systolic Volume Index (BP MOD) 6 ml/m2 8-24 LV EF (BP MOD) 73 % 54-74 LV Diastolic Length (4C) 6.2 cm LV Systolic Length (4C) 5.2 cm LV Stroke Volume (4C MOD) 29 ml Atria Name Value Normal LA Dimensions LA Dimension (MM) 3.9 cm 2.7-3.8 LA Volume (4C A-L) 56 ml LA Volume (BP A-L) 50 ml RA Dimensions RA Area (4C) 12.4 cm2 <=18.0 Report Signatures
== END 2024-10-21 09:02 | disposition home or self-care (01) ==
PROVIDERS: PCP Nurse Practitioner; Visit Provider Internal Medicine Cardiovascular Disease
DX: R06.09 Other forms of dyspnea (principal); Z01.810 Encounter for preprocedural cardiovascular examination
CPT/HCPCS: 78452; 93017; 93306; A9502; J2785

== ENCOUNTER 2024-10-21 13:19 | Outpatient (CLI) | payer MEDICARE, SELFPAY ==
[2024-10-21 14:01] LABS: Hematocrit 46.5 % (37.0-47.0); Hemoglobin 14.9 g/dL (12.0-15.0); Mean Corpuscular Hemoglobin 31.4 pg (26-34); Mean Corpuscular Volume 97.9 fl (80-100); Mean Platelet Volume 11.6 fl (7.4-10.4); Platelet Count Result 281 k/mm3 (150-375); Red Blood Count 4.75 M/mm3 (4.2-5.4); Red Cell Distribution Width 12.5 % (11.5-14.5); White Blood Count 9.3 K/mm3 (4.5-10.0)
[2024-10-21 14:07] LABS: Add Urine Microscopic? NO; Appearance Urine Clear (Clear); Bilirubin Urine Negative (Negative); Blood Urine Negative (Negative); Color Urine Yellow (Yellow); Glucose Urine UA Negative (Negative); Ketones Urine Negative (Negative); Leukocyte Esterase Ur Negative LEU/UL (Negative); Nitrate Urine Negative (Negative); Protein Urine Negative (Negative); Urobilinogen Urine 0.2 mg/dL (<2.0)
[2024-10-21 14:22] LABS: Anion Gap 13 mmol/L (4-12); Blood Urea Nitrogen 13 mg/dL (7-17); Calcium 10.4 mg/dL (8.4-10.2); Carbon Dioxide 25 mmol/L (22-30); Chloride 102 mmol/L (98-107); Estimated Glomerular Filt Rate > 60; Glucose 118 mg/dL (65-110); Potassium 4.2 mmol/L (3.4-5.0); Sodium 140 mmol/L (137-145)
[2024-10-21 14:24] LABS: Partial Thromboplastin Time 30.1 Seconds (22.3-36.8)
--- OUTSIDE RECORDS SUMMARY | 2024-10-21 14:33 | XMS_ITS | Encounter Summary ---
Author Organization [facility] Address [address] [place] [address] Care Team Providers Care Weight Guesser Name Role Phone Mihaela Alvarenga MANAGER OF DRILLING Primary Care Provider [phone] Jamee Ma DO Unavailable Encounter Details Date Type Department Care Team (Late st Contact Info) Description 10/31/2019 Prep for Procedure [facility] [address] [place] [address] Garcia Fernandes MD [address] [facility] [address] [place] [address] Social History Tobacco Use Types Packs/Day Years [...] DETECTED NOT DETECTED 11/05/2019 6:43 AM CDT [facility] Comment:[facility] RE[facility] NASOPHARYNGEAL SWAB / Unknown 11/03/2019 10:11 AM CDT us Garcia Fernandes MD MICROBIOLOGY - GENERAL ASUNCION KHAN Final Result [facility] [address] [place] [address], documented in this encounter Visit Diagnoses Diagnosis Pre-op testing- Primary Preoperative examination, unspecified documented in this encounter Additional Health Concerns Infection Onset Date Last Indicated Resolved Time COVID-19 Rule Out 11/03/2019 11/03/2019 11/05/2019 6:43 AM CDT documented as of this encounter Care Teams Weight Guesser Relationship Specialty Start Date End Date Mihaela Alvarenga FNP [address] [place], [place] [id number] PCP - General NURSE PRACTITIONER 04/30/18 Jamee Ma DO [address] [place] [id number] PCP - Med Group - [facility] Attributed Provider 04/29/19 06/24/21 documented as of this encounter
--- OUTSIDE RECORDS SUMMARY | 2024-10-21 14:33 | XMS_ITS | Clinical Summary ---
Author Organization [facility] Address [facility] [place] [address] Care Team Providers Care Ice Platform Supervisor Name Role Phone Mihaela Alvarenga EDITORIAL PROJECT MANAGER Primary Care Provider [phone] Allergies Active Allergy Reactions Criticality Noted Date [...] 07/06/19 23 Active Lancets (ONETOUCH DELICA PLUS [id number]) MiscIndications:Ty pe 2 diabetes mellitus without complication, without long-term current use of insulin ([facility]) 1 strip by Other route daily. DX; E11.9 100 each 09/11/19 24 Active Glucose Blood (ONETOUCH ULTRA TEST) test stripIndications:M ixed hyperlipidemia Pt. To test blood sugar Daily. DX: E11.9 100 strip 3 07/29/19 25 Active metFORMIN (GLUCOPHAGE) 1000 MG tabletIndications: Type 2 diabetes mellitus without complication, without long-term current use of insulin ([facility]) TAKE 1 TABLET (1000 MG TOTAL) BY MOUTH 2 (TWO) TIMES DAILY. OFFICE VISIT DUE FOR FURTHER REFILLS. 60 tablet 10/08/19 25 Active metFORMIN (GLUCOPHAGE) 1000 MG tabletIndications: Type 2 diabetes mellitus without complication, without long-term current use of insulin ([facility]) TAKE 1 TABLET (1000 MG TOTAL) BY [...] Date Onset: 05/11/2014 Diabetes mellitus, type II ([facility]) Overview (10/01/2018): Date Onset: 09/16/2013 Encounters Date Type Department Care Team Description 10/16/[address] [place] [address] Mihaela Alvarenga FNP Lab Results 10/09/2024 6:56 AM CDT - 10/09/2024 11:59 PM CDT Hospital Encounter [facility] [address] [place] [address] Terence Kumar DO Discharge Disposition: Home or Self Care (Routine Discharge) 10/09/2024 Orders Only [facility] [address] [place] [address] Terence Kumar DO 10/09/2024 Travel 10/06/2024 Telephone [facility] [address] [facility] [place] [address] Mihaela Alvarenga FNP Error 09/16/[address] [place] [address] Mihaela Alvarenga, EMILY Information 09/01/[address] [place] [address] Mihaeal Alvarenga, EMILY Information 08/29/[address] [place] [address] Mihaela Alvarenga, EDITORIAL PROJECT MANAGER Concerns 08/25/[address] [place] [address] Mihaela Alvarenga, EDITORIAL PROJECT MANAGER Referral 08/13/[address] [place] [address] Mihaela Alvarenga FNP Results 08/11/2024 Scan HEALTH INFO SRVCS Scanned, [facility] ECG (SCAN); Image (SCAN) 07/31/2024 Scan MG HEALTH INFO SRVCS Scanned, [facility] MRI (SCAN) 07/29/[address] [place] [address] Mihaela Alvarenga, EDITORIAL PROJECT MANAGER Medication Request from Last 3 Months Immunizations [...] Tobacco Cessation:Counseling Given: Not Answered Comments:provider to agency legal counsel Alcohol Use Standard Drinks/Week Comments No 0 [...] Vaccine (1 - season) 2024 PHQ-2 (Physician [place]) 06/25/2024 Hemoglobin A1C 08/22/2024 02/22/2024, 02/23, 06/30/2022, [...] this topic Medical Devices Implanted Type Area Return Clerk Device Identifier Shelf Expiration Date Model / [...] 242(H) <200 MG/DL 10/09/2024 11:13 AM CDT [facility] TRIGLYCERIDES 117 <150 MG/DL 10/09/2024 11:13 AM CDT [facility] HDL 53 >40.0 MG/DL 10/09/2024 11:13 AM CDT [facility] LDL (CALCULATED) 166(H) <100 MG/DL 10/09/2024 11:13 AM CDT [facility] NON HDL CHOLESTEROL 189(H) <130 MG/DL 10/09/2024 11:13 AM CDT [facility] CHOL/HDL RATIO 4.6(H) 0.0 - 4.5 10/09/2024 11:13 AM CDT [facility] VLDL CALCULATION 23 5 - 55 MG/DL 10/09/2024 11:13 AM CDT [facility] LIPID INTERPRETATION 10/09/2024 11:13 AM CDT [facility] Comment: [facility] CONCENSUS REPORT RECOMMENDATIONS: ADULT CHILD LOW RISK: CHOLESTEROL <200 <170 TRIGLYCERIDE <150 --- HDL >=60 --- LDL <100 <110 BORDERLINE: CHOLESTEROL 200-239 170-199 TRIGLYCERIDE 150-199 --- HDL 40-59 --- LDL 100-159 110-129 HIGH RISK: CHOLESTEROL >=240 >=200 TRIGLYCERIDE >=200 --- HDL <40 --- LDL >=160 >=130 10/09/2024 7:05 AM CDT Terence Kumar DO LABORATORY Final Result [facility] [address] [place] [address], [place] [phone] * ECG GENERIC (SCAN ORDER) (08/11/2024) 08/11/2024 [facility] Scanned SCANNING Final Resu lt * IMAGE GENERIC (08/11/2024) Anatomical Region Laterality Modality Other 08/11/2024 [facility] Scanned SCANNING Final Resu lt * MRI GENERIC (07/31/2024) Anatomical Region Laterality Modality Other 07/31/2024 us [facility] Scanned SCANNING Final Resu lt * (ABNORMAL) HEMOGLOBIN, GLYCOSYLATED (02/22/2024 8:35 AM CDT) HGB A1C 6.4(H) <5.7 % 02/22/2024 4:19 PM CDT [facility] Comment: ADA GUIDELINES 2010 5.7 TO 6.4% INCREASED RISK OF DIABETES > OR = 6.5% CONSISTENT WITH DIABETES ESTIMATED AVG GLUCOSE 137 mg/dL 02/22/2024 4:19 PM CDT [facility] 02/22/2024 8:35 AM CDT Mihaela DIAZ LABORATORY Final Result [facility] [address] [place] [address], * DIABETIC RETINOPATHY EXAM (NEGATIVE) (07/04/2023) [facility] Scanned SCANNING Final Resu lt [facility] ONBASE from Last 3 Months or Most Recently Relevant to Health Maintenance Insurance A[employer] Care Teams Ice Platform Supervisor Relationship Specialty Start Date End Date Mihaela Alvarenga FNP [address] [place] [address] [place] [address] PCP - General NURSE PRACTITIONER 04/30/18
== END 2024-10-21 13:20 | disposition home or self-care (01) ==
LOC: ANHSURGERY 13:22
PROVIDERS: PCP Nurse Practitioner; Visit Provider Neurological Surgery
DX: M54.16 Radiculopathy, lumbar region (principal); Z01.818 Encounter for other preprocedural examination
CPT/HCPCS: 36415; 80048; 81003; 85027; 85610; 85730

== ENCOUNTER 2024-10-29 01:14 | Day surgery (SDC) | payer MEDICARE, SELFPAY ==
[2024-08-11 08:58] VITALS: BP 145/68; PULSE 78; RESP 16; TEMP 37.2; O2SAT 100; BMI 26.4
--- NOTE | 2024-08-11 09:15 | PC.NURSE ---
Report to the Outpatient Waiting Room, entrance under the green pavilion located off [facility], at time ___6:00AM____ on date ___09/03/24____. Planned Procedure Time: ____7:30A,____.? Time changes happen often and if your time is changed the preop area will call you the afternoon before. - You and your visitor will be asked to self-screen and do not enter if you have any COVID symptoms. Please call surgeon if you need to reschedule. - A mask is optional within the hospital at this time. Patients may have clear liquids (water, carbonated beverages, clear teas, apple juice) until 3 hours prior to surgery (4:30AM) with a maximum of 20 ounces. - No food from midnight until time of surgery and no smoking, or chewing tobacco (or any form of nicotine). No chewing gum, candy or mints. Take only the following medications with a SIP of water on the morning of surgery: ____NONE DO NOT STOP ANY OF YOUR OTHER PRESCRIPTION MEDICATIONS PRIOR TO SURGERY EXCEPT THE FOLLOWING Hold all vitamins and supplements for 3 days per anesthesiologist.-LAST DOSE 08/30/24. Medications to discontinue per physician NONE Please no make-up, nail chilean, hairspray, perfume, deodorant, or body powder the day of surgery.? No jewelry (including any body piercings) or valuables the day of surgery, leave them at home.? Please take a shower or bath the night before, or the morning of, surgery with an antibacterial soap.? Wear comfortable, loose fitting clothing.? - Jewelry must be removed prior to entering the operating room.? Rings and piercings that are not removed may be cut off. - The hospital will not accept responsibility for valuables.? - Please leave all valuables, including medications, at home the day of surgery. If you are going home after surgery, a licensed combine driver must drive you home.? - NO public transportation without another adult if you receive anesthesia. - We recommend that an adult stay with you for 24 hours following discharge. - We also recommend that you do not drive, make important decision, drink alcoholic beverages, or take any drugs that were not prescribed by your health care provider for at least 24 hours after your discharge time. Follow any additional instructions given to you from your surgeon. Telephone instructions given to ____PATIENT & HUSBAND and asked if any additional questions and then verbalized understanding. Patient advised to call surgeon office or pre surgery nurse liaison [phone] if any additional questions.
[2024-10-20 15:31] VITALS: BMI 25.7
--- NOTE | 2024-10-20 16:00 | PC.NURSE ---
Report to the Outpatient Waiting Room, entrance under the green pavilion located off [facility], at time ___6:00AM____ on date ___10/29/24____. Planned Procedure Time: ___7:30AM .? Time changes happen often and if your time is changed the preop area will call you the afternoon before. - You and your visitor will be asked to self-screen and do not enter if you have any COVID symptoms. Please call surgeon if you need to reschedule. - A mask is optional within the hospital at this time. Patients may have clear liquids (water, carbonated beverages, clear teas, apple juice) until 3 hours prior to surgery (4:30AM) with a maximum of 20 ounces. - No food from midnight until time of surgery and no smoking, or chewing tobacco (or any form of nicotine). No chewing gum, candy or mints. Take only the following medications with a SIP of water on the morning of surgery: __NONE DO NOT STOP ANY OF YOUR OTHER PRESCRIPTION MEDICATIONS PRIOR TO SURGERY EXCEPT THE FOLLOWING Medications to discontinue per physician ___HOLD IBUPROFEN PER DR UMANZOR Date to take last dose Please no make-up, nail yoruba, hairspray, perfume, deodorant, or body powder the day of surgery.? No jewelry (including any body piercings) or valuables the day of surgery, leave them at home.? Please take a shower or bath the night before, or the morning of, surgery with an antibacterial soap.? Wear comfortable, loose fitting clothing.? - Jewelry must be removed prior to entering the operating room.? Rings and piercings that are not removed may be cut off. - The hospital will not accept responsibility for valuables.? - Please leave all valuables, including medications, at home the day of surgery. If you are going home after surgery, a licensed owner operator tanker truck driver must drive you home.? - NO public transportation without another adult if you receive anesthesia. - We recommend that an adult stay with you for 24 hours following discharge. - We also recommend that you do not drive, make important decision, drink alcoholic beverages, or take any drugs that were not prescribed by your health care provider for at least 24 hours after your discharge time. Follow any additional instructions given to you from your surgeon. Telephone instructions given to ____PATIENT and asked if any additional questions and then verbalized understanding. Patient advised to call surgeon office or pre surgery nurse liaison [phone] if any additional questions.
[2024-10-29] VITALS (11 sets, daily range): BP systolic 120–150; BP diastolic 54–97; PULSE 56–69; RESP 13–16; TEMP 36.4; O2SAT 93–100
--- NOTE | ~2024-10-29 | XR_ITS ---
EXAMINATION: XR fluoroscopy no charge DATE: 10/29/2024 09:19 INDICATION: Right L3-L4 and L4-L5 hemilaminectomies TECHNIQUE: Single lateral fluoroscopic image of the lower lumbar spine was obtained during procedure performed by Dr. Chow. Radiologist was not present for the imaging or procedure. The amount of flu oroscopy time used during this procedure was 0.1 minutes. Total DAP was 0.529 mGym^2. COMPARISON: None. FINDINGS: Demonstrate the tips of a couple metallic probes projecting over the inferior articular processes of L3 and L4. Lap sponge markers project over the intervening soft tissues. IMPRESSION: 1. Fluoroscopy utilized during reported right L3-L4 and L4-L5 hemilaminectomies. See procedure note f or further detail. Reviewed, dictated and finalized at location A. IMPRESSION: 1. Fluoroscopy utilized during reported right L3-L4 and L4-L5 hemilaminectomies . See procedure note for further detail.
--- OUTSIDE RECORDS SUMMARY | 2024-10-29 01:22 | XMS_ITS | Clinical Summary ---
Author Organization [facility] Address [facility] [place] [address] Care Team Providers Care Slag Mixer Name Role Phone Mihaela Alvarenga LACE ROLLER Primary Care Provider [phone] Allergies Active Allergy Reactions Criticality Noted Date [...] 07/06/19 23 Active Lancets (ONETOUCH DELICA PLUS [id number]) MiscIndications:Ty pe 2 diabetes mellitus without complication, without long-term current use of insulin ([facility]) 1 strip by Other route daily. DX; E11.9 100 each 09/11/19 24 Active Glucose Blood (ONETOUCH ULTRA TEST) test stripIndications:M ixed hyperlipidemia Pt. To test blood sugar Daily. DX: E11.9 100 strip 3 07/29/19 25 Active metFORMIN (GLUCOPHAGE) 1000 MG tabletIndications: Type 2 diabetes mellitus without complication, without long-term current use of insulin ([facility]) TAKE 1 TABLET (1000 MG TOTAL) BY MOUTH 2 (TWO) TIMES DAILY. OFFICE VISIT DUE FOR FURTHER REFILLS. 60 tablet 10/08/19 25 Active metFORMIN (GLUCOPHAGE) 1000 MG tabletIndications: Type 2 diabetes mellitus without complication, without long-term current use of insulin ([facility]) TAKE 1 TABLET (1000 MG TOTAL) BY [...] Date Onset: 05/11/2014 Diabetes mellitus, type II ([facility]) Overview (10/01/2018): Date Onset: 09/16/2013 Encounters Date Type Department Care Team Description 10/16/[address] [place] [address] Mihaela Alvarenga FNP Lab Results 10/09/2024 6:56 AM CDT - 10/09/2024 11:59 PM CDT Hospital Encounter [facility] [address] [place] [address] Terence Kumar DO Discharge Disposition: Home or Self Care (Routine Discharge) 10/09/2024 Orders Only [facility] [address] [place] [address] Terence Kumar DO 10/09/2024 Travel 10/06/2024 Telephone [facility] [address] [facility] [place] [address] Mihaela Alvarenga FNP Error 09/16/[address] [place] [address] Mihaela Alvarenga FNP Information 09/01/2024 Telephone [facility] [address] [facility] [place] [address] Mihaela Alvarenga FNP Information 08/29/[address] [place] [address] Mihaela Alvarenga, EMILY Concerns 08/25/2024 Telephone [facility] [address] [facility] [place] [address] Mihaela Alvarenga, LACE ROLLER Referral 08/13/[address] [place] [address] Mihaela Alvarenga FNP Results 08/11/2024 Scan HEALTH INFO SRVCS Scanned, [facility] ECG (SCAN); Image (SCAN) from Last 3 Months Immunizations Immunization Administration [...] Tobacco Cessation:Counseling Given: Not Answered Comments:provider to associate counsel Alcohol Use Standard Drinks/Week Comments No [...] Vaccines (1 - Tdap) 11/22/1969 COVID-19 Vaccine ( - season) 2024 PHQ-2 (Physician [place]) 06/25/2024 Hemoglobin A1C 08/22/2024 02/22/2024, 02/23, 06/30/2022, [...] Exam 07/04/2025 07/04/2023 Lipid Panel 10/09/2025 10/09/2024, 01/25, 03/07/2023, Additional history exists Pneumococcal Vaccine: 50+ [...] this topic Medical Devices Implanted Type Area Building Specialist Device Identifier Shelf Expiration Date Model / Serial / Lot Knee Components Knee Components Right: Knee Procedures Procedure Name Priority Date/Time Associated Diagnosis Comments LIPID PANEL Routine 10/09/2024 7:05 AM CDT Abnormal electrocardiogram ECG GENERIC (SCAN ORDER) 08/11/2024 IMAGE GENERIC 08/11/2024 HEMOGLOBIN, GLYCOSYLATED Routine 02/22/2024 8:35 AM CDT Type 2 diabetes mellitus without complication, without long-term current use of insulin DIABETIC RETINOPATHY EXAM (NEGATIVE)(SCAN ORDER) Routine 07/04/2023 from Last 3 Months or Most Recently Relevant to Health Maintenance Results * (ABNORMAL) LIPID PANEL (10/09/2024 7:05 AM CDT) CHOLESTEROL 242(H) <200 MG/DL 10/09/2024 11:[address] [facility] TRIGLYCERIDES 117 <150 MG/DL 10/09/2024 11:[address] [facility] HDL 53 >40.0 MG/DL 10/09/2024 11:[address] [facility] LDL (CALCULATED) 166(H) <100 MG/DL 10/09/2024 11:[address] [facility] NON HDL CHOLESTEROL 189(H) <130 MG/DL 10/09/2024 11:[address] [facility] CHOL/HDL RATIO 4.6(H) 0.0 - 4.5 10/09/2024 11:[address] [facility] VLDL CALCULATION 23 5 - 55 MG/DL 10/09/2024 11:[address] [facility] LIPID INTERPRETATION 10/09/2024 11:[address] [facility] Comment: NIH CONCENSUS REPORT RECOMMENDATIONS: ADULT CHILD LOW RISK: CHOLESTEROL <200 <170 TRIGLYCERIDE <150 --- HDL >=60 --- LDL <100 <110 BORDERLINE: CHOLESTEROL 200-239 170-199 TRIGLYCERIDE 150-199 --- HDL 40-59 --- LDL 100-159 110-129 HIGH RISK: CHOLESTEROL >=240 >=200 TRIGLYCERIDE >=200 --- HDL <40 --- LDL >=160 >=130 10/09/2024 7:0 5 AM CDT [facility] Terence Kumar DO LABORATORY Final Result [facility] [address] [place] [address], [place] [phone] * ECG GENERIC (SCAN ORDER) (08/11/2024) 08/11/2024 [facility] Scanned SCANNING Final Resu lt * IMAGE GENERIC (08/11/2024) Anatomical Region Laterality Modality Other 08/11/2024 [facility] Scanned SCANNING Final Resu lt * (ABNORMAL) HEMOGLOBIN, GLYCOSYLATED (02/22/2024 8:35 AM CDT) HGB A1C 6.4(H) <5.7 % 02/22/2024 4:[address] [facility] Comment: ADA GUIDELINES 2010 5.7 TO 6.4% INCREASED RISK OF DIABETES > OR = 6.5% CONSISTENT WITH DIABETES ESTIMATED AVG GLUCOSE 137 mg/dL 02/22/2024 4:19 PM CDT [facility] 02/22/2024 8:35 AM CDT us Mihaela DIAZ LABORATORY Final Result [facility] [address] [place] [address], * DIABETIC RETINOPATHY EXAM (NEGATIVE) (07/04/2023) us [facility] Scanned SCANNING Final Resu lt [facility] ONBASE from Last 3 Months or Most Recently Relevant to Health Maintenance Insurance A[employer] Care Teams Slag Mixer Relationship Specialty Start Date End Date Mihaela Alvarenga FNP [address] [place] [address] [place] [phone] PCP - General NURSE PRACTITIONER 04/30/18
--- OUTSIDE RECORDS SUMMARY | 2024-10-29 01:22 | XMS_ITS | Encounter Summary ---
Author Organization [facility] Address [address] [place] [id number] Care Team Providers Care Identity Management Developer Name Role Phone Mihaela Alvarenga INSPECTORS AND REGULATORY OFFICERS Primary Care Provider [phone] Jamee Ma DO Unavailable Encounter Details Date Type Department Care Team (Late st Contact Info) Description 10/31/2019 Prep for Procedure [facility] [address] [place] [address] Garcia Fernandes MD [address] [facility] [address] [place] [address] Social History Tobacco Use Types Packs/Day Years [...] DETECTED NOT DETECTED 11/05/2019 6:43 AM CDT [facility] Comment:[facility] NASOPHARYNGEAL SWAB / Unknown 11/03/2019 10:11 AM CDT us Garcia Fernandes MD MICROBIOLOGY - GENERAL ASUNCION KHAN Final Result [facility] [address] [place] [address], documented in this encounter Visit Diagnoses Diagnosis Pre-op testing- Primary Preoperative examination, unspecified documented in this encounter Additional Health Concerns Infection Onset Date Last Indicated Resolved Time COVID-19 Rule Out 11/03/2019 11/03/2019 11/05/2019 6:43 AM CDT documented as of this encounter Care Teams Identity Management Developer Relationship Specialty Start Date End Date Mihaela Alvarenga FNP [address] [place], [place] [id number] PCP - General NURSE PRACTITIONER 04/30/18 Jamee Ma DO [address] [place] [id number] PCP - Med Group - [facility] Attributed Provider 04/29/19 06/24/21 documented as of this encounter
--- OUTSIDE RECORDS SUMMARY | 2024-10-29 01:23 | XMS_ITS | Patient Health Record ---
Author Organization [facility] Address [address] [place] [address] Care Team Providers Care Import Dispatcher Name Role Phone Lyle MAS, Mihaela Primary Care Provider Helga Mary PA-C, DARRELL Unavailable [phone] ALLERGIES Allergen (clinical drug ingredient) Drug/Non Drug [...] Insured Coverage Start Date Coverage End Date [facility] [address] [place], [place] [id number] Missy Boyer Self - patient is the [...]
[2024-10-29] MEDS: LACTATED RINGERS 1,000 ML 30 ML IV CONT ×2 (06:30→09:27)
[2024-10-29 06:47] LABS: Glucose Point of Care 107 mg/dl (65-105)
--- NOTE | 2024-10-29 07:14 | WPDHPUPDATE1 ---
History and Physical Update Update Date/Time: 10/29/24 07:14 History and Physical has been reviewed, including an updated exam of the patient. There are NO changes in the patient's condition. Risks, benefits, and alternatives have been discussed and questions answered. Patient agrees to proceed with procedure.
--- NOTE | 2024-10-29 07:15 | P.HP_ITS ---
H&P: HPI History of Present Illness Date/Time: 10/29/24 07:15 Chief Complaint: right leg pain Narrative: Ms. Boyer is a 73-year-old female with history of well-controlled diabetes who presents as a 2nd opinion for right leg pain. Her symptoms started in the summer of 2022 without obvious inciting event. She does report that she and her had purchased a [id number] around that time and suspects that the manner in which she had to get in out of that vehicle exacerbated her back. She describes pain radiating down the right side of her leg into the medial ankle. This is fairly constant and worsens with sitting for long periods of time or doing activities like shoveling snow. She can get some relief with lying back in a recliner. She denies any paresthesias, weakness, or left-sided symptoms. She had physical therapy in April and May which made her pain worse. She has been taking ibuprofen. She had 2 epidural steroid injections at L3-[address] Caceres, 1st in July 2023 and again at the end of October. These were helpful for about a month at a time. She had seen Dr. Stauffer's nurse practitioner who was recommending surgery, but the patient did not feel comfortable with this facility. She then went to [facility] who offered a MILD procedure, but she again did not feel comfortable with this. She is here for another opinion. Throughout our conversation, she had notable issues with expressive and at times receptive aphasia. She did indicate that the speech issues are new over the last 2 years and have perhaps worsened lately. She and her deny any other cognitive changes, headaches, nausea, vomiting, or balance issues. She did seemingly have severe vertigo around the time that her speech issues started, and she saw a chiropractor who was able to nearly cure the vertigo. She does report some visual changes in her left eye which she describes as seeing triangles. She has seen an eye doctor for this. She reports some occasional paresthesias in her face. 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 She became upset when I asked her about this and indicated that she does like talking about it. She is otherwise healthy with a recent A1c of 6.4%. She does not take any blood thinners. [facility] Past Medical History Medical History Arthritis Gastroesophageal reflux disease Type 2 diabetes mellitus Vertigo Surgical History Surgical History History of bilateral knee arthroplasty Total right knee 2004. Total left knee 06/2022. History of cholecystectomy History of endoscopic retrograde cholangiopancreatography History of esophagogastroduodenoscopy Family History Family History Mother Diabetes mellitus Colon cancer Grandparent Cerebrovascular accident Diabetes mellitus Social History Social History Social History: Surrogate medical decision maker: Popeye Jackson, spouse. Code status: Full code. Smoking status: Never smoker Alcohol intake: current Substance use: never Do You Feel Safe in your Home?: Yes Lack of Transportation: No Lack of Food: Never True Current Housing: I Have Housing Concerned About Future Housing: No Difficulty Paying Gas/Electric Bills: Decline to Answer Difficulty Paying for Meds: Decline to Answer Currently Unemployed: Decline to Answer Education: Bachelor's Degree Living arrangements: with family Additional living arrangements comments: [email or web address] Spiritual care concerns: No Meds Home Medications and Allergies Home Medications ?Medication ?Instructions ?Recorded ?Confirmed ?Type calcium carbonate (Tums) 200 mg PO BID PRN Indigestion 04/06/22 10/29/24 History metformin 1,000 mg tablet 1,000 mg PO BID 04/06/22 10/29/24 History ibuprofen 200 mg tablet 400 mg PO Q6H PRN pain 09/05/22 10/29/24 History Allergies Allergy/AdvReac Type Severity Reaction Status Date / Time hydrocodone AdvReac Severe NAUSEA AND Verified 10/29/24 06:51 VOMITING codeine AdvReac Unknown HEADACHE Verified 10/29/24 06:51 oxycodone AdvReac NAUSEA/VOMI Verified 10/29/24 06:51 TING Vital Signs Vital Signs - 24 hr 10/29/24 06:30 Temperature 97.5 F L Pulse Rate 69 Respiratory Rate 16 Pulse Oximetry 99 Oxygen Delivery Room Air Exam Narrative: Right ptosis Slight softening of right nasolabial fold Positive straight leg raise Right leg pain worsens with FAIR and ESTEE Mild expressive and receptive aphasia throughout conversation Unable to repeat phrase accurately Able to name objects with slight hesitation Mild dysmetria on right and dysdiadochokinesia on left Unless otherwise stated above, the patient's physical exam is as follows: General: -Well developed and well nourished. No a cute distress. Cooperative with exam. Mental status: -Awake and oriented to person, place, an d time. Affect is normal. -Fund of knowledge appropriate -Recent and remote memory are intact -Attention span and concentration appear normal -Language function is normal -There is no evidence of aphasia in conv ersational speech. Cranial nerves: -CN II: Visual west full to bedside co nfrontation -CN III, IV, : Pupils equal, round, an d reactive to light; extraocular movements, no ptosis, no nystagmus -CN V: Facial sensation intact in V1 thr ough V3 distributions -CN VII: Face symmetric -CN VIII: Hearing intact to conversation al speech -CN IX, X: Palate elevates symmetrically ; normal phonation -CN XI: Symmetric full strength of flores ocleidomastoid and trapezius muscles -CN XII: Tongue protrudes midline Integumentary: -No obvious skin lesions or masses Motor: -Muscle tone normal without spasticity o f flaccidity. No atrophy. No fasciculations. -No pronator drift -Right upper extremity: deltoid 5/5, bic eps 5/5, triceps 5/5, wrist extensors 5/5, wrist flexors 5/5, intrinsics 5/5 -Left upper extremity: deltoid 5/5, liyah ps 5/5, triceps 5/5, wrist extensors 5/5, wrist flexors 5/5, intrinsics 5/5 -Right lower extremity: iliopsoas 5/5, q uadriceps 5/5, hamstrings 5/5, tibialis anterior 5/5, gastroc-soleus 5/5, EHL 5/5 -Left lower extremity: iliopsoas 5/5, qu adriceps 5/5, hamstrings 5/5, tibialis anterior 5/5, gastroc-soleus 5/5, EHL 5/5 Sensory: -Intact to light touch throughout -Normal proprioception throughout Reflexes: -1-2+ DTR's throughout -No Ngo's, clonus, or Babinski bilat erally Musculoskeletal: -Lumbar spine: no tenderness to palpatio n, no pain, and normal lumbosacral spine movements -Tijikkfj-qnv-femtg test negative -Hip: normal range of motion, no crepitu s bilaterally. 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 Assessment and Plan Assessment and plan (1) Lumbar radiculopathy: Code(s): M54.16 - Radiculopathy, lumbar region Status: Acute Plan Ms. Byoer is a 73-year-old female with history of diabetes who presents with 18 months of radicular right leg pain following an L4-L5 dermatome from which she had temporary improvement with epidural steroid injections and no improvement with physical therapy. She has also had progressive issues with her speech over the last 2 years and does have some evidence of expressive, receptive, and conductive aphasia on physical exam. She has had some recent vision changes and sensory changes in her face. MRI lumbar spine does show severe right lateral recess stenosis at L3-4 and L4-5 from a combination of ligamentum flavum hypertrophy and epidural lipomatosis. I have offered her surgery in the form of right L3-4 and L4-5 hemilaminectomies. We discussed surgery in detail including risks, expected recovery, and restrictions after surgery. She indicated that she would like to go home on the day of surgery if possible.
[2024-10-29] MEDS: ceFAZolin 2 GM/D5W 50 ML 2 GM/50 ML BAG IVPB (07:30)
--- NOTE | 2024-10-29 07:36 | WPDANESEPPF ---
Anes - Initial Pre Proc Eval Procedure: Operation Date: 10/29/24 07:30 Proposed Procedures p Right L3-4, L 4-5 Hemilaminectomy - Flores Chow MD Date/Time: 10/29/24 07:36 Surgeon: Flores Chow MD Pre Op Diagnosis: Lumbar Radiculopathy Patient Data Age: 73 Gender: F Height: 1.63 m Weight: 68.1 kg Last Vital Signs Temp 97.5 F L 10/29/24 06:30 Pulse 69 10/29/24 06:30 Resp 16 10/29/24 06:30 BP 145/68 H 08/11/24 08:58 Pulse Ox 99 10/29/24 06:30 O2 Del Method Room Air 10/29/24 06:30 Allergies Allergy/AdvReac Type Severity Reaction Status Date / Time hydrocodone AdvReac Severe NAUSEA AND Verified 10/29/24 06:51 VOMITING codeine AdvReac Unknown HEADACHE Verified 10/29/24 06:51 oxycodone AdvReac NAUSEA/VOMI Verified 10/29/24 06:51 TING Home Medications ?Medication ?Instructions ?Recorded ?Confirmed ?Type calcium carbonate (Tums) 200 mg PO BID PRN Indigestion 04/06/22 10/29/24 History metformin 1,000 mg tablet 1,000 mg PO BID 04/06/22 10/29/24 History ibuprofen 200 mg tablet 400 mg PO Q6H PRN pain 09/05/22 10/29/24 History Laboratory Tests 10/29/24 06:42 POC Capillary Glucose 107 H mg/dl (65-105) Patient hx anesthesia problems: none Family hx anesthesia problems: none Results Review: All pre-operative results and documents have been reviewed as part of the pre-operative evaluation. [facility] Past Medical History Medical History Arthritis Gastroesophageal reflux disease Type 2 diabetes mellitus Vertigo Surgical History Surgical History History of bilateral knee arthroplasty Total right knee 2004. Total left knee 06/2022. History of cholecystectomy History of endoscopic retrograde cholangiopancreatography History of esophagogastroduodenoscopy Family History Family History Mother Diabetes mellitus Colon cancer Grandparent Cerebrovascular accident Diabetes mellitus Social History Social History Social History: Surrogate medical decision maker: Popeye Jackson, spouse. Code status: Full code. Smoking status: Never smoker Alcohol intake: current Substance use: never Do You Feel Safe in your Home?: Yes Lack of Transportation: No Lack of Food: Never True Current Housing: I Have Housing Concerned About Future Housing: No Difficulty Paying Gas/Electric Bills: Decline to Answer Difficulty Paying for Meds: Decline to Answer Currently Unemployed: Decline to Answer Education: Bachelor's Degree Living arrangements: with family Additional living arrangements comments: [facility] Spiritual care concerns: No Anes - Eval Final PreProcedure Day of Procedure 10/29/24 07:36 Patient weight: normal Heart: regular rate and rhythm Lungs: clear to auscultation Airway: Mallampati scale class II Neurological: alert and oriented Last oral intake: >/= 8 hours ASA classification: III Emergent: no Anesthetic plan: proceed Anesthesia type and monitoring: general ETT and standard monitoring Results Review: All pre-operative results and documents have been reviewed as part of the pre-operative evaluation. Informed Consent: The patient's anesthetic plan and its attendant risks and benefits were discussed with the patient/family/POA. Questions were solicited and answers provided to the satisfaction of the patient/family/POA.
[2024-10-29] MEDS: BUPIVACAINE/EPINEPHRINE 0.5% 50 ML VIAL 30 ML INFILTRATE (07:59)
--- NOTE | 2024-10-29 09:26 | PM.OP ---
Procedure Note - Brief Procedure Note - Brief Date of procedure: 10/29/24 Lumbar Radiculopathy Post-op diagnosis: Same Procedure performed: Right L3-4, L4-5 hemilaminectomies Use of microscope Surgeon: Flores Chow MD Anesthesia: GETA Findings: Successful decompression at both levels without complication Estimated blood loss (mL): 25 Drains: No Packing: No Pathology: None sent Complications: None Condition: Stable Disposition: PACU
[2024-10-29 09:34] LABS: Glucose Point of Care 149 mg/dl (65-105)
--- NOTE | 2024-10-29 09:34 | W.PM.PROC2 ---
Procedure Note - Detailed Date of Procedure 10/29/24 Pre-op Diagnosis Lumbar Radiculopathy Post-op Diagnosis Same Procedure Performed 1. Right L3-4, L4-5 hemilaminectomies 2. Use of microscope for microsurgical dissection 3. Use of C-arm for fluoroscopy Surgeon Flores Chow MD Race Relations Professor [place] Anesthesia General Description of Procedure The patient was brought to the operating room, and general anesthesia was induced. The patient was placed prone on the Abdon frame, and all pressure points were padded. Compression devices were placed on the patient's calves. The skin was cleaned with alcohol. The C-arm was brought onto the field to localize the appropriate disc space and assist with incisional planning. The previous incision was marked. The area was prepped and draped in usual sterile fashion. A time out was conducted, and pre-operative antibiotics were administered. Local anesthesia was injected into the planned incision. A midline skin incision was opened with a 10-blade scalpel, and dissection was carried down with the monopolar cautery to open the fascia on the right side of midline. Once the spinous processes were located, a subperiosteal dissection was performed to expose the laminae of L3 and L4 on the right, taking care to avoid the facet. A self-retaining retractor was placed. The C-arm was brought in to confirm the correct level. The microscope was draped and brought into the field for microsurgical dissection. The high-speed drill was used to thin the right L3 lamina to the ligamentum flavum. A currette was used to separate the ligament from the bone which was then removed with the Kerrison. The ligamentum was then elevated with a currette and removed. A kerrison was passed along the traversing nerve root and followed distally to remove bone into the foramen. A Woodsen was used to verify adequate decompression at the cranial and caudal aspects of the decompression as well as into the foramen. This process was repeated at L4. The lamina was thinned with the drill to the ligamentum flavum. The ligamentum was then elevated with a currette and removed with a kerrison until the traversing nerve root was fully exposed. Hemostasis was ensured with the bipolar, floseal, and cottonoids, and the area was copiously irrigated. No evidence of CSF leak was noted. The fascia was closed with 0-Vicryl in an interrupted fashion. The soft tissue was again copiously irrigated. The dermis was closed with 2-0 then 3-0 interrupted Vicryl. The skin was closed with 4-0 monocryl. Skin glue was applied. The patient was returned supine on the stretcher, extubated, and transferred to PACU without incident. Billing codes: 57747, 25333, 46059 Estimated Blood Loss 25 Drains No Packing No Pathology None sent Complications None Condition Stable Disposition PACU [facility] Billing Surgery - Charge Forward: Surgery Billing
[2024-10-29] MEDS: ONDANSETRON INJ 4 MG/2 ML VIAL IV PUSH (10:00)
[2024-10-29] MEDS: diphenhydrAMINE HCl INJ 50 MG/ML VIAL 12.5 MG IV PUSH (10:51)
== END 2024-10-29 11:56 | disposition home or self-care (01) ==
PROVIDERS: PCP Nurse Practitioner; Visit Provider Neurological Surgery
PROC: (CPT 63030; principal; 2024-10-29 07:30)
DX: M54.16 Radiculopathy, lumbar region (principal); E11.9 Type 2 diabetes mellitus without complications
CPT/HCPCS: 63030; 63035; 82948; 99199; J0690; J1100; J1200; J2003; J2405; J2704; J3010; J7120

== ENCOUNTER 2025-03-10 10:58 | Outpatient (CLI) | payer MEDICARE, SELFPAY ==
--- NOTE | ~2025-03-10 | XR_ITS ---
XR lumbar spine min 4V Indication: M25.551 - Pain in right hip Comparison: None Findings: Moderate loss of vertebral height, no fracture. Minimal grade 1 retrolisthesis of L1 on L2 and L2 on L3, no subluxation is seen with flexion or extension Moderate to severe loss of disc height throughout. Soft tissues unremarkable Impression: No acute abnormality. Reviewed, dictated and finalized at location A. Impression: No acute abnormality.
--- NOTE | ~2025-03-10 | XR_ITS ---
EXAMINATION: XR hip RT min 2V, 03/10/2025 11:40 CDT HISTORY: M25.551 - Pain in right hip COMPARISON: No comparisons available. Findings: No acute fracture or malalignment. No significant degenerative changes. Soft tissues unremarkable. Impression: No acute fracture or malalignment. Reviewed, dictated and finalized at location A. Impression: No acute fracture or malalignment.
--- NOTE | ~2025-03-10 | MR_ITS ---
EXAMINATION: MR lumbar spine duncan galindo, 03/10/2025 11:00 CDT HISTORY: Z98.890 - Other specified postprocedural states COMPARISON: None TECHNIQUE: Multi-planar multi-sequence images were obtained of the lumbar spine without contrast per protocol. FINDINGS: Minimal loss of vertebral height throughout. Grade 1 retrolisthesis of L1 on L2 and L2 on L3, no fracture is identified. Marrow signal is appropriate with scattered areas of subcentimeter hemangioma formation. Posterior alignment intact. No abnormal signal within the posterior elements Conus terminates at T12-L1, no abnormal signal within the visualized cord Moderate loss of disc height throughout with multilevel mild to moderate disc desiccation and endplate degenerative changes most marked at L5-S1 The soft tissues are unremarkable L5-S1: Circumferential bulging of the disc with ligamentum flavum and facet hypertrophy. Moderate bilateral foramina and lateral recess stenosis. Mild canal stenosis. L4-5: Circumferential bulging of the disc with ligamentum flavum and facet hypertrophy. Probable postsurgical changes at this level. Moderate to severe bilateral foramina and lateral recess stenosis, no canal stenosis. L3-4: Circumferential bulging of the disc with ligamentum flavum and facet hypertrophy. Moderate bilateral foramina and lateral recess stenosis, no canal stenosis. L2-L3: Circumferential bulging of the disc with ligamentum flavum and facet hypertrophy. Moderate bilateral foramina and lateral recess stenosis, mild canal stenosis. L1-L2: No canal or foraminal stenosis IMPRESSION: Degenerative changes detailed above Reviewed, dictated and finalized at location A.
== END 2025-03-10 10:59 | disposition home or self-care (01) ==
LOC: MICIMG 10:59
PROVIDERS: PCP Nurse Practitioner; Visit Provider Neurological Surgery
DX: M25.551 Pain in right hip (principal); Z98.890 Other specified postprocedural states; M54.16 Radiculopathy, lumbar region; M51.369 Other intervertebral disc degeneration, lumbar region without mention of lumbar back pain or lower extremity pain
CPT/HCPCS: 72110; 72148; 73502